=== PATIENT | male | born 1970 | race Caucasian/White ===

== ENCOUNTER 2021-10-11 10:35 | Outpatient (REF) | payer OTHER, SELFPAY ==
[2021-10-11 13:59] LABS: Alanine Aminotransferase 38 U/L (0-40); Albumin Level 4.3 g/dL (3.5-5.0); Alkaline Phosphatase 59 U/L (39-117); Anion Gap 11 (12-20); Aspartate Amino Transferase 24 U/L (5-37); Bilirubin Total 1.2 mg/dL (0.0-1.0); Blood Urea Nitrogen 9 mg/dL (9-16); Calcium 9.3 mg/dL (8.4-10.2); Carbon Dioxide 28 mmol/L (22-29); Chloride 106 mmol/L (96-108); Cholesterol 261 mg/dL; Estimated Glomerular Filt Rate > 60; Glucose Fasting 124 mg/dL (60-99); HDL Cholesterol 32 mg/dL; LDL Cholesterol Calculated 182 mg/dl; Potassium 4.2 mmol/L (3.3-5.1); Sodium 141 mmol/L (135-145); Total Protein 7.2 g/dL (6.5-8.0); Triglycerides 235 mg/dL
[2021-10-11 14:21] LABS: Prostate Specific Antigen Scr 0.55 ng/mL (<0.05-4.0); TSH reflex Free T4 2.06 uIU/mL (0.32-4.0)
[2021-10-16 10:46] LABS: Testosterone, Total 437 ng/dL (250-1100)
== END 2021-10-11 10:36 | disposition home or self-care (01) ==
LOC: HO.WFDLDS 10:35
PROVIDERS: Visit Provider Family Medicine
DX: Z00.00 Encounter for general adult medical examination without abnormal findings (principal); N52.9 Male erectile dysfunction, unspecified; E66.9 Obesity, unspecified; E78.5 Hyperlipidemia, unspecified; R74.01 Elevation of levels of liver transaminase levels; Z68.30 Body mass index [BMI] 30.0-30.9, adult; Z12.5 Encounter for screening for malignant neoplasm of prostate
CPT/HCPCS: 36415; 80053; 80061; 84153; 84402; 84403; 84443

== ENCOUNTER 2022-01-28 10:34 | Outpatient (REF) | payer OTHER, SELFPAY ==
[2022-01-28 14:30] LABS: Cholesterol 235 mg/dL; HDL Cholesterol 32 mg/dL; LDL Cholesterol Calculated 161 mg/dl; Triglycerides 210 mg/dL
[2022-01-28 14:36] LABS: Estimated Average Glucose 114 mg/dL; Hemoglobin A1c % 5.6 %
== END 2022-01-28 10:35 | disposition home or self-care (01) ==
LOC: HO.WFDLDS 10:34
PROVIDERS: Visit Provider Family Medicine
DX: E78.5 Hyperlipidemia, unspecified (principal); R73.01 Impaired fasting glucose
CPT/HCPCS: 36415; 80061; 83036

== ENCOUNTER → 2022-02-14 10:07 | Outpatient (BNVA) | payer OTHER, SELFPAY | PROVIDERS: PCP Family Medicine; Visit Provider Nurse Practitioner Family | DX: R06.83 Snoring (principal); R40.0 Somnolence | CPT/HCPCS: 99202 ==

== ENCOUNTER → 2022-03-04 09:25 | Outpatient (BNVA) | payer OTHER, SELFPAY | PROVIDERS: PCP Family Medicine; Referring Provider Family Medicine; Visit Provider Nurse Practitioner | DX: K58.0 Irritable bowel syndrome with diarrhea (principal) | CPT/HCPCS: 99202; 99212 ==

== ENCOUNTER → 2022-03-21 10:38 | Outpatient (REF) | payer OTHER, SELFPAY ==
[2022-03-21 11:29] LABS: C Reactive Protein 0.18 mg/dL (< or = 0.50)
[2022-03-23 10:41] LABS: Transglutaminase Ab IgG <1.0 U/mL
[2022-03-25 14:47] LABS: Gliadin Deamidated IgA Ab 2.1 U/mL; Gliadin Deamidated IgG Ab <1.0 U/mL; Transglutaminase IgA <1.0 U/mL
== END ==
LOC: HO.SL 10:38
PROVIDERS: Absent Provider Nurse Practitioner; PCP Family Medicine; Visit Provider Nurse Practitioner Family
DX: R06.83 Snoring (principal); R40.0 Somnolence; R19.7 Diarrhea, unspecified
CPT/HCPCS: 36415; 86003; 86140; 86258; 86364; 95806

== ENCOUNTER 2022-05-23 09:11 | Outpatient (REF) | payer OTHER, SELFPAY ==
--- NOTE | ~2022-05-23 | US_ITS ---
EXAMINATION: US ABDOMEN LIMITED CLINICAL INFORMATION: Abdominal pain, rule out gallbladder disease. COMPARISON: None TECHNIQUE: Real-time imaging of the right upper quadrant abdominal viscera. Technically limited study secondary to bowel gas. FINDINGS: PANCREAS: Visualized part of the body appears unremarkable. LIVER: The liver is normal in size. The liver contour is normal. There is diffuse increased liver parenchymal echogenicity, consistent with hepatic steatosis or hepatocellular disease or combination thereof. Focal areas of fatty sparing are noted around the gallbladder bed. There is no intrahepatic biliary duct dilatation seen. GALLBLADDER: Normal. The gallbladder is physiologically distended without evidence of stones, sludge, polyps, wall thickening or pericholecystic fluid. The gallbladder wall thickness measures 0.3 cm. COMMON BILE DUCT: Normal in caliber measuring 0.4 cm in diameter. RIGHT KIDNEY: There is a complex 2.0 cm maximum dimension cyst present associated with possible small solid nodular component. No hydronephrosis or renal calculi. The kidney measures 11.6 cm in maximum dimension. FREE FLUID: None. US/US abdomen limited IMPRESSION: 1. No sonographic evidence of cholelithiasis or biliary obstruction. 2. Complex 2.0 cm maximum dimension cyst associated with possible small solid nodular component, not optimally evaluated. Follow-up CT scan or MRI per renal mass protocol with and without intravenous contrast is recommended for further clarification.
== END 2022-05-23 09:12 | disposition home or self-care (01) ==
LOC: HO.US 09:11
PROVIDERS: PCP Family Medicine; Visit Provider Nurse Practitioner
DX: R19.7 Diarrhea, unspecified (principal)
CPT/HCPCS: 76705

== ENCOUNTER → 2022-06-03 10:06 | Outpatient (BNVA) | payer OTHER, SELFPAY | PROVIDERS: PCP Family Medicine; Referring Provider Family Medicine; Visit Provider Nurse Practitioner | DX: R19.7 Diarrhea, unspecified (principal); R14.0 Abdominal distension (gaseous) | CPT/HCPCS: 99212 ==

== ENCOUNTER 2022-06-27 11:46 | Outpatient (REF) | payer OTHER, SELFPAY ==
[2022-06-27 14:43] LABS: Cholesterol 261 mg/dL; HDL Cholesterol 37 mg/dL; LDL Cholesterol Calculated 178 mg/dl; Triglycerides 231 mg/dL
== END 2022-06-27 11:47 | disposition home or self-care (01) ==
LOC: HO.WFDLDS 11:46
PROVIDERS: Visit Provider Family Medicine
DX: Z00.00 Encounter for general adult medical examination without abnormal findings (principal); E78.5 Hyperlipidemia, unspecified; E78.6 Lipoprotein deficiency; R53.83 Other fatigue
CPT/HCPCS: 36415; 80061

== ENCOUNTER 2022-07-15 08:30 | Outpatient (REF) | payer OTHER, SELFPAY ==
--- NOTE | ~2022-07-15 | CT_ITS ---
EXAMINATION: CT ABDOMEN WITHOUT AND WITH CONTRAST CLINICAL INFORMATION: Other diseases of the kidneys. COMPARISON: None TECHNIQUE: Contiguous axial thin section helical images of the abdomen were performed before and after the administration of oral contrast and 85 mL of Omnipaque 350 intravenous contrast. The data set was reformatted in the coronal and sagittal planes and reviewed on an independent workstation. This CT examination was performed using dose optimization techniques as appropriate, variously including the following: *Automated exposure control *Adjustment of mA and/or kV according to patient size (this includes techniques or standardized protocols for targeted exams where dose is matched to indication/reason for exam; i.e. extremities or head) *Use of iterative reconstruction technique DLP: 685 mGy-cm FINDINGS: LUNG BASES: There are reticular nodular changes in both lower lobes more nodules bilaterally. Findings are greater on the left. Heart size is normal. LIVER, GALLBLADDER, AND BILIARY TREE: The liver is diffusely attenuated but normal size, contour and shape. No focal lesion or intrahepatic ductal dilatation seen. PANCREAS: The pancreas is homogeneous in density and normal size. The periventricular borders are maintained normal. Superior and posterior pancreas or abnormal lymph nodes. SPLEEN: Spleen appears unremarkable. ADRENAL GLANDS AND KIDNEYS: Bilateral adrenal glands are symmetric and normal. Both kidney nephrograms are symmetrical. There is a nonenhancing upper pole 2 cm cyst. There are a few tiny hypodensities seen in the upper pole right kidney as well. No radiopaque calculi hydronephrosis seen. BOWEL LOOPS: There is scattered stool and gas seen throughout the colon without any significant distention. The small bowel loops are normal caliber. Appendix is normal caliber. LYMPH NODES: Numerous upper retroperitoneal lymph nodes are seen largest lymph node measuring 1.4 cm axial image 69/4. A portacaval lymph node also measures 1.4 cm axial image 76/4. VASCULAR: Unremarkable. BONES: No aggressive lytic or sclerotic process seen. CT/CT abdomen wo/w IV con IMPRESSION: Abnormal upper abdominal retroperitoneal lymph nodes of unknown etiology. There is mild hepatic attenuation likely fatty infiltration. No focal lesion seen. Simple cyst midpole right kidney. There are few tiny hypodensities seen in the upper pole. Left kidney is unremarkable. Fleischner guidelines were followed.
[2022-07-15] MEDS: iohexoL 350 MG/ML 100 ML INFUS..BTL 85 ML IV (09:15)
[2022-07-15 10:34] LABS: Creatinine POC 0.8 mg/dL (0.5-1.4); GFR POC > 60
== END 2022-07-15 08:31 | disposition home or self-care (01) ==
LOC: HO.CT 08:30
PROVIDERS: PCP Family Medicine; Visit Provider Family Medicine
DX: N28.89 Other specified disorders of kidney and ureter (principal)
CPT/HCPCS: 74170; 82565; Q9967

== ENCOUNTER → 2022-08-10 14:46 | Outpatient (BNVA) | payer OTHER, SELFPAY | PROVIDERS: PCP Family Medicine; Visit Provider Surgery | DX: R59.0 Localized enlarged lymph nodes (principal) | CPT/HCPCS: 99202 ==

== ENCOUNTER 2023-12-27 13:58 | Outpatient (AMB) | payer SELFPAY ==
--- NOTE | 2023-12-27 14:01 | A.OFFPC_ITS ---
Vital Signs 12/27/23 14:02 Height 5 ft 9 in Weight 211 lb 2 oz BMI 31.2 BP 116/60 Blood Pressure Location Lt brachial Position Sitting Pulse 80 Pulse Source Pulse Oximeter Pulse Oximetry (%) 96 Oxygen Delivery Method Room Air Intake Visit Reasons: CPE Intake Note: Patient is here for his physical today. Allergies No Known Allergies Allergy (Verified 12/27/23 14:04) Tobacco use date assessed: 12/27/23 Dental Screening Dental Screen Date: 12/27/23 Did you have a dental visit in the last 12 months?: Yes Did you have a dental problem in the last 6 months where you did not have access to dental care?: No Was dental information given to patient?: Patient has dentist HPI CPE HPI Details 53 y/o male presents for an extended exa m with f/u labs and health maintenance. No recent labs to review. Pt notes he walks for exercise daily. Pt notes he snores loudly. He states he did do a sleep study about 2 years ago. Home sleep study was negative for sleep apnea. Pt notes he has not had a colonoscopy. HPI Comments History of Present Illness Details Documentation assistance for Brayan Vazquez MD, was provided by Ramesh Salamanca, Non Destructive Testing Technician on 12/27/2023 2:22 PM EST. I, Dr. Vazquez, have read, observed, and verified documentation. [facility] Surgical History History of back surgery Family History Other Mental health disorder Social History Housing: Apartment Patient Tobacco Use Status: Never used Tobacco e-Cigarette/Vaping Use: Never Used Second Hand Smoke Exposure: No Current occupational status: employed Current occupational exposures/hazards: No Cognitive needs: No Hearing needs: No Vision needs: No Questionnaire PHQ-9 Over the last 2 weeks, how often have you been bothered by any of the following problems? 1. Little interest or pleasure in doing things: not at all 2. Feeling down, depressed, or hopeless: not at all 3. Trouble falling or staying asleep, or sleeping too much: not at all 4. Feeling tired or having little energy: not at all 5. Poor appetite or overeating: not at all 6. Feeling bad about yourself - or that you are a failure or have let yourself or your family down: not at all 7. Trouble concentrating on things, such as reading the newspaper or watching television: not at all 8. Moving or speaking so slowly that other people could have noticed. Or the opposite - being so fidgety or restless that you have been moving around a lot more than usual: not at all 9. Thoughts that you would be better off or of hurting yourself in some way: not at all Total score: 0 Depression Screening Interpretation: Negative Depression Screening Done: Yes 88734 - PHQ-9 Billing: Yes Source: Developed by Drs. Anders Lovelace, Matilde Fink, Sterling Freeman and colleagues, with an educational ai from [employer]. Thrive Questionnaire Date Thrive assessed: 12/27/23 I am a: Patient What is your living situation today?: I have a steady place to live Within the past 12 months, did the food you bought not last and you didn't have the money to get more?: Never true Within the past 12 months, did you worry whether your food would run out before you got money to buy more?: Never true Do you have trouble paying for medicines?: No Do you have trouble getting transportation to medical appointments?: No Do you have trouble paying your heating and electricity bill?: No Do you have trouble taking care of your child, family member or friend?: No Do you have trouble with day-to-day activities such as bathing, preparing meals, shopping, managing finances, etc.?: No Are you currently unemployed and looking for a job?: No Are you interested in more education?: No THRIVE Score: 0 AUDIT C Alcohol Use Questionnaire (AUDIT-C) 1. How often do you have a drink containing alcohol?: 2-3 times a week (once a week) 2. How many drinks containing alcohol do you have on a typical day when you are drinking?: 5 or 6 3. How often do you have six or more drinks on one occasion?: Never Total Score: 5 ROJAS-7 AMB Questionnaire ROJAS-7 Date ROJAS - 7 assessed: 03/27/24 Feeling nervous, anxious, or on edge: 0 = Not at all Not being able to stop or control worryin = Not at all Worrying too much about different things: 0 = Not at all Trouble relaxin = Not at all Being so restless that it is hard to sit still: 0 = Not at all Becoming easily annoyed or irritable: 0 = Not at all Feeling afraid as if something awful might happen: 0 = Not at all Total ROJAS-7 score (0-4 normal; 5-9 mild; 10-14 moderate; 15-21 severe): 0 Source: Developed by Drs. Anders Lovelace, Matilde Fink, Sterling Freeman and colleagues, with an educational ai from [employer]. ROJAS-7 Assessment Billing ROJAS-7 Assessment Tool: ROJAS-7 Assessment 26242 Review of Systems Const Denies chills, Denies fatigue, Denies fever(s), Denies headache(s) and Denies weakness Eyes Denies change in vision ENT Denies dizziness, Denies headache(s), Denies hearing loss, Denies nasal congestion, Denies sinus pain, Denies sinus pressure and Denies sore throat Card Denies chest pain, Denies lightheadedness, Denies dyspnea and Denies other (palpitations) Resp Denies cough, Denies dyspnea and Denies wheezing GI Denies abdominal pain, Denies melena, Denies hematochezia, Denies change in bowel habits, Denies dyspepsia and Denies nausea Denies hematuria and Denies dysuria Musc Denies abnormal gait, Denies myalgias, Denies arthralgias, Denies numbness and Denies tingling Skin/Breast Denies rash, Denies unusual bruising and Denies wounds Neuro Denies abnormal gait, Denies dizziness, Denies headache(s), Denies memory loss, Denies numbness, Denies Sensory deficit (Neuro), Denies tingling and Denies weakness Psych Denies anxiety, Denies depression and Denies memory loss Endo Denies cold intolerance, Denies fatigue, Denies heat intolerance, Denies polydipsia and Denies polyuria Clay/Lymph Denies easy bleeding and Denies easy bruising Aller/Immun Denies wheezing Physical exam (Primary Care) Vital Signs: Last Vital Signs Pulse 80 12/27/23 14:02 BP 116/60 12/27/23 14:02 Pulse Ox 96 12/27/23 14:02 Oxygen Delivery Method Room Air 12/27/23 14:02 BMI result Body Mass Index 31.2 Tobacco/Smoking Status: Tobacco use Status Tobacco use date assessed 12/27/23 12/27/23 14:04 Patient Tobacco Use Status Never used Tobacco 12/27/23 14:02 e-Cigarette/Vaping Use Never Used 12/27/23 14:02 PHQ-9: PHQ-9 Score PHQ-9: Total score 0 12/27/23 14:10 Depression Screening Interpretation: Negative Thrive Assessment: Date of Thrive Assessment Date Thrive assessed 12/27/23 12/27/23 14:10 Const General: no acute distress, well developed, alert and awake Nutritional Appearance: well nourished Orientation/consciousness: patient oriented x3 HENMT Head: Yes normocephalic and Yes atraumatic Ears: hearing grossly normal bilaterally and TM's normal bilaterally General nose exam: Normal external nose present and Normal nares present Mouth: Normal oral and palatal mucosa present and moist mucous membranes Teeth and gingiva: dentition normal Throat: Yes posterior oropharynx normal Eyes General: appearance normal, both eyes and all related structures Pupils: Equal, round and reactive pupils present and Pupil accommodation reflex normal EOM: EOMs intact bilaterally Neck Neck: Yes normal visual inspection, Yes no lymphadenopathy and Yes trachea midline Thyroid: Thyroid normal Carotids: no bruits Lymphatic: no lymphadenopathy noted Chest Chest palpation & inspection: normal inspection of the chest Resp Effort & Inspection: normal respiratory effort Auscultation: clear to auscultation bilaterally Cardio Rate: regular rate Rhythm: regular rhythm Heart sounds: S1 normal heart sound present, S2 normal heart sound present, no gallops, no murmurs and no rubs Bruits: no abdominal aortic bruits and no carotid bruits GI Palpation (GI): No Abdominal aortic bruit present, Soft to palpation, nontender, No hepatosplenomegaly present and No Rebound tenderness present Auscultation: normal bowel sounds General: Yes no CVA tenderness Back/Spine/Pelvis Back: no CVA tenderness Cervical Spine: cervical ROM normal and No Cervical spine tenderness Thoracic/Lumbar Spine: thoraco-lumbar ROM normal, No pain with thoraco-lumbar ROM, No thoracic spinal tenderness and No lumbar spinal tenderness Skin Lesions: no lesions Rashes: no rashes Trauma: no lacerations or abrasions Wounds: no wounds Nails: normal Neuro General: patient oriented x3 Cranial nerves: Yes Equal, round and reactive pupils present Cognition (Neuro): normal cognition Gait exam (Neuro): Normal gait present Motor exam (neuro): 5/5 motor strength present throughout Sensory Exam: No Sensory deficit (Neuro) Deep tendon reflexes (DTR's): Right patellar reflex intensity grade: 2+ and Left patellar reflex intensity grade: 2+ Extrem General: Yes normal to inspection and No edema Psych Appearance: grossly normal Affect: normal affect Attitude: cooperative Thought process: Normal thought process present Assessment and Plan Assessment & Plan (1) Retroperitoneal lymphadenopathy: Code(s): R59.0 - Localized enlarged lymph nodes Plan: Patient?says?he?followed?up?with?surgeon?who?reassured?him?that?there?was?no?nee d?for?intervention. He?has?no?abdominal?pain?or?testicular?pain. Advised?him?that?if?he?has?any?concerns?we?can?follow- up?with?CT?scan.??Patient?declines?for?now. (2) Lumbar radiculitis: Code(s): M54.16 - Radiculopathy, lumbar region Plan: History?of?back?surgery Intermittent?symptoms Referred?to?physiatry If?not?improving?would?get?MRI?and?consider?referral?back?to?surgeon (3) Snoring: Code(s): R06.83 - Snoring Plan: Loud?snoring?and?un?restful?sleep/fatigue. Referred?to?ENT He?had?had?a?sleep?study?previously?which?was?negative?but?still?suspicious?for? obstructive?sleep?apnea (4) Umbilical hernia: Code(s): K42.9 - Umbilical hernia without obstruction or gangrene Plan: Referred?to?surgery (5) Screening for prostate cancer: Code(s): Z12.5 - Encounter for screening for malignant neoplasm of prostate Plan: Check?PSA (6) Screening for colon cancer: Code(s): Z12.11 - Encounter for screening for malignant neoplasm of colon Plan: Will?refer?to?Gastroenterology (7) Adult general medical examination: Code(s): Z00.00 - Encounter for general adult medical examination without abnormal findings Orders: Orders Complete Blood Count Auto Diff Today Z00.00 - Encounter for general adult medical examination without abnormal findings Microalbumin, Random (w Creat) Today I10 - Essential (primary) hypertension TSH reflex Free T4 Today Z00.00 - Encounter for general adult medical examination without abnormal findings Testosterone, Free/Total Today N52.9 - Male erectile dysfunction, unspecified Comprehensive [place]. Panel Fast Today Z00.00 - Encounter for general adult medical examination without abnormal findings Lipid Panel Today Z00.00 - Encounter for general adult medical examination without abnormal findings Prostate Specific Antigen Scr Today Z12.5 - Encounter for screening for malignant neoplasm of prostate UA and rflx microscopic Today Z00.00 - Encounter for general adult medical examination without abnormal findings Referrals Ear/Nose/Throat Referral R06.83 - Snoring, R40.0 - Somnolence Gastroenterology Referral Z12.11 - Encounter for screening for malignant neoplasm of colon General Surgery Referral K42.9 - Umbilical hernia without obstruction or gangrene Physiatry Referral M54.16 - Radiculopathy, lumbar region Coding Level of Care Code Est Pt Level 4 (07474) Diagnoses Retroperitoneal lymphadenopathy R59.0 Lumbar radiculitis M54.16 Snoring R06.83 Umbilical hernia K42.9 Screening for prostate cancer Z12.5 Screening for colon cancer Z12.11 Adult general medical examination Z00.00 Additional Codes ROJAS-7 Assessment Billing - ROJAS-7 Assessment Tool: ROJAS-7 Assessment 25835 ([id number])
[2023-12-27 14:02] VITALS: BP 116/60; PULSE 80; O2SAT 96; BMI 31.2
== END 2023-12-27 15:10 | disposition home or self-care (01) ==
PROVIDERS: PCP Family Medicine; Visit Provider Family Medicine
DX: Z00.00 Encounter for general adult medical examination without abnormal findings (principal); R59.0 Localized enlarged lymph nodes; M54.16 Radiculopathy, lumbar region; R06.83 Snoring; K42.9 Umbilical hernia without obstruction or gangrene; Z12.5 Encounter for screening for malignant neoplasm of prostate; Z12.11 Encounter for screening for malignant neoplasm of colon
CPT/HCPCS: 99396

== ENCOUNTER 2024-03-11 09:28 | Outpatient (REF) | payer OTHER, SELFPAY ==
[2024-03-11 09:46] LABS: MANUAL DIFF FLAG NO
[2024-03-11 10:13] LABS: Basophils Percent Auto 0.5 % (0-2); Eosinophils Absolute Auto 0.1 X10*3/uL (0.0-0.4); Eosinophils Percent Auto 2.3 % (0-4); Hematocrit 49.9 % (42.0-52.0); Hemoglobin 17.1 g/dl (14.0-18.0); Imm Gran Abs Auto 0.03 X10*3/uL (0.00-0.03); Imm Gran Pct Auto 0.7 % (0.0-0.4); Lymphocytes Absolute Auto 1.4 X10*3/uL (1.2-4.9); Lymphocytes Percent Auto 33.4 % (20-40); Mean Corpuscular HGB Conc 34.3 g/dl (31.0-36.0); Mean Corpuscular Hemoglobin 29.2 pg (27.0-33.0); Mean Corpuscular Volume 85.3 fL (80.0-98.0); Mean Platelet Volume 10.6 fL (9.4-12.4); Monocytes Absolute Auto 0.4 X10*3/uL (0.1-1.2); Monocytes Percent Auto 8.4 % (2-11); Neutrophils Absolute Auto 2.3 x10*3/uL (2.0-8.3); Neutrophils Percent Auto 54.7 % (45-73); Platelet Count 225 X10*3/uL (160-400); Red Blood Count 5.85 X10*6/uL (4.60-5.80); Red Cell Distribution Width 12.9 % (11.0-16.0); White Blood Count 4.3 X10*3/uL (4.8-10.8)
[2024-03-11 11:04] LABS: Prostate Specific Antigen Scr 0.58 ng/mL (<0.05-4.0)
[2024-03-11 11:09] LABS: Alanine Aminotransferase 43 U/L (0-40); Albumin Level 4.6 g/dL (3.5-5.0); Alkaline Phosphatase 58 U/L (39-117); Anion Gap 16 (12-20); Aspartate Amino Transferase 26 U/L (5-37); Bilirubin Total 1.1 mg/dL (0.0-1.0); Blood Urea Nitrogen 11 mg/dL (9-16); Calcium 10.1 mg/dL (8.4-10.2); Carbon Dioxide 27 mmol/L (22-29); Chloride 104 mmol/L (96-108); Cholesterol 263 mg/dL (<200); Estimated Glomerular Filt Rate > 60; Glucose Fasting 133 mg/dL (60-99); HDL Cholesterol 36 mg/dL (>40); LDL Cholesterol Calculated 189 mg/dL (<100); Potassium 4.7 mmol/L (3.3-5.1); Sodium 142 mmol/L (135-145); TSH reflex Free T4 2.02 uIU/mL (0.32-4.0); Total Protein 7.6 g/dL (6.5-8.0); Triglycerides 191 mg/dL (<150)
[2024-03-11 11:24] LABS: Appearance Urine Clear; Color Urine Yellow; Glucose Urine UA Negative (Negative); Leukocyte Esterase Urine Negative (Negative); Nitrite Urine Negative (Negative); PH 5.5 (5.0-9.0); Specific Gravity - Urine 1.025 (1.005-1.025); Urine Blood Negative (Negative); Urine Ketones Negative (Negative); Urine Protein Negative (Neg-Trace)
[2024-03-11 12:13] LABS: Creatinine Urine 185.13 mg/dL; Microalbum/Creatinine Ratio Ur 5.9 ug/mg cr (<30)
[2024-03-16 19:19] LABS: Testosterone, Free 48.8 pg/mL (35.0-155.0); Testosterone, Total 530 ng/dL (250-1100)
== END 2024-03-11 09:29 | disposition home or self-care (01) ==
LOC: HO.LAB 09:28
PROVIDERS: PCP Family Medicine; Visit Provider Family Medicine
DX: Z00.00 Encounter for general adult medical examination without abnormal findings (principal); N52.9 Male erectile dysfunction, unspecified; I10 Essential (primary) hypertension; K42.9 Umbilical hernia without obstruction or gangrene; Z12.5 Encounter for screening for malignant neoplasm of prostate
CPT/HCPCS: 36415; 80053; 80061; 81003; 82043; 82570; 84153; 84402; 84403; 84443; 85025; 99212

== ENCOUNTER 2024-03-11 12:56 | Outpatient (AMB) | payer OTHER, SELFPAY ==
[2024-03-11 13:07] VITALS: BP 137/89; PULSE 87; BMI 32.0
--- NOTE | 2024-03-11 13:07 | A.OFFVIS_ITS ---
Vital Signs 03/11/24 13:07 Height 5 ft 9 in Weight 217 lb BMI 32.0 BP 137/89 Blood Pressure Location Rt brachial Position Sitting Pulse 87 Intake Visit Reasons: Umbilical hernia Intake Note: This patient presents for an assessment for an Umbilical hernia. Pt c/o; reports bulge, reports pain, reports no changes in bowel habitis. Abd Ct 07/15/2022 abd US 05/23/2022 Accompanied by: Other Relationship Allergies No Known Allergies Allergy (Verified 03/11/24 13:09) Medication List - Last Reconciled 03/11/24 by Rah Hull MD No Known Home Meds HPI HPI Umbilical hernia: Details: 54-year-old male referred for an umbilical hernia. He has had this for about 2 years. He this reducible mass on the umbilicus. This has been increasing in size however and causing some discomfort now. He therefore wants this repaired. [facility] Surgical History History of back surgery Family History Other Mental health disorder Social History Housing: Apartment Patient Tobacco Use Status: Never used Tobacco e-Cigarette/Vaping Use: Never Used Second Hand Smoke Exposure: No Current occupational status: employed Current occupational exposures/hazards: No Cognitive needs: No Hearing needs: No Vision needs: No Review of Systems Const Denies chills and Denies fever(s) Card Denies chest pain, Denies dyspnea and Denies dyspnea on exertion Resp Denies cough, Denies dyspnea and Denies dyspnea on exertion GI Denies hematochezia and Denies change in bowel habits Denies hematuria and Denies difficulty urinating Musc Denies back pain and Denies limited range of motion Neuro Denies focal weakness and Denies convulsions Psych Denies depression and Denies mood swings Physical Exam Vital Signs: Last Vital Signs Pulse 87 03/11/24 13:07 BP 137/89 03/11/24 13:07 BMI result Body Mass Index 32.0 Const Other: Appears overweight General: comfortable and no acute distress Orientation/consciousness: patient oriented x3 Neck Neck: Yes no lymphadenopathy Resp Auscultation: clear to auscultation bilaterally Cardio Rhythm: regular rhythm GI Other: Umbilical hernia, about 2 cm in diameter, reducible Palpation (GI): Soft to palpation, nontender and no guarding Neuro General: patient oriented x3 Assessment & Plan Assessment & Plan (1) Umbilical hernia: Code(s): K42.9 - Umbilical hernia without obstruction or gangrene Category: Medical Plan: He has a reducible umbilical hernia as described above. He wants to proceed with repair. I explained the technique of repair with possible mesh. I reviewed the risks including but not limited to bleeding, infections, bowel injury, recurrence, postop pain, as well as the benefits and alternatives. He understands and wants to proceed His was with him during visit He had a history of retroperitoneal adenopathy in the past he would it may be good to repeat his CT scan down the line. Coding Level of Care Code Est Pt Level 3 (98359) Diagnoses Umbilical hernia K42.9
== END 2024-03-11 13:23 | disposition home or self-care (01) ==
PROVIDERS: PCP Family Medicine; Visit Provider Surgery
DX: K42.9 Umbilical hernia without obstruction or gangrene (principal)
CPT/HCPCS: 99214

== ENCOUNTER → 2024-03-22 08:24 | Outpatient (AMB) | payer OTHER, SELFPAY ==
--- NOTE | 2024-03-22 08:22 | MHC.PC.OV ---
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 Labs were drawn 03/11/24. Reviewed labs with pt. Elevated fasting glucose of 133. Elevated ALT of 43. Triglycerides 191. TC 263. LDL 189. HDL low at 36. Pt had been concerned about fatigue/changes in libido. Testosterone levels are within normal range. He notes he does cough, snore and turn in the middle of the night. He notes he did have a sleep study but has never heard about the results. [facility] Surgical History History of back surgery Family History Other Mental health disorder Social History Housing: Apartment Patient Tobacco Use Status: Never used Tobacco e-Cigarette/Vaping Use: Never Used Second Hand Smoke Exposure: No Current occupational status: employed Current occupational exposures/hazards: No Cognitive needs: No Hearing needs: No Vision needs: No Questionnaire Thrive Questionnaire Date Thrive assessed: 12/27/23 ROJAS-7 AMB Questionnaire ROJAS-7 Date ROJAS - 7 assessed: 12/27/23 Source: Developed by Drs. Anders Lovelace, Matilde Fink, Sterling Freeman and colleagues, with an educational ai from [employer]. Review of Systems Const Denies chills, Denies fatigue, Denies fever(s), Denies headache(s) and Denies weakness ENT Denies dizziness and Denies headache(s) Card Denies dyspnea Resp Denies cough, Denies dyspnea, Denies wheezing and Denies other (shortness of breath) Musc Denies numbness and Denies tingling Neuro Denies dizziness, Denies headache(s), Denies numbness, Denies tingling and Denies weakness Psych Denies anxiety and Denies depression Endo Denies fatigue Aller/Immun Denies wheezing Physical exam (Primary Care) Tobacco/Smoking Status: Tobacco use Status Tobacco use date assessed 12/27/23 03/22/24 08:22 Patient Tobacco Use Status Never used Tobacco 03/22/24 08:22 e-Cigarette/Vaping Use Never Used 03/22/24 08:22 Thrive Assessment: Date of Thrive Assessment Date Thrive assessed 12/27/23 03/22/24 08:22 Telehealth Telehealth Telehealth Platform: Telephone Location of provider rendering services: practice address Location of patient: address on file Patient Identification confirmed using: Name, : Yes Telehealth method: voice only Patient verbally consented to treatment: Yes Patient verbally consented to billing insurance company: Yes Patient informed of any privacy concerns related to visit: Yes Minutes spent on Phone/Video with Pt.: 20 Assessment and Plan Assessment & Plan (1) Hyperlipidemia: Code(s): E78.5 - Hyperlipidemia, unspecified Plan: LDL?cholesterol?is?too?high Start?atorvastatin Will?recheck?lipids?in?3?months (2) Elevated fasting blood sugar: Code(s): R73.01 - Impaired fasting glucose Plan: Will?check?A1c?at?next?lab?draw (3) Elevated transaminase level: Code(s): R74.01 - Elevation of levels of liver transaminase levels Plan: Patient?has?had?elevated?liver?enzymes?in?the?past Mildly?elevated?ALT Prior?abdominal?ultrasound?and?prior?abdominal?CT?show?fatty?liver?disorder?without?other?lesions Encouraged?weight?loss (4) Low HDL (under 40): Code(s): E78.6 - Lipoprotein deficiency Plan: Encouraged?exercise - patient?says?he?is?already?exercising?quite?a?bit Encouraged?good?consistency?of?exercise?and?he?can?adjust?intensity?subsequently. (5) Fatigue: Code(s): R53.83 - Other fatigue Plan: Ongoing?fatigue?throughout?his?day?and?awakens?without?feeling?refreshed. She?snores?loudly Had?a?sleep?study?in?2021?which?was?negative. Recommending?he?follow-up?with?sleep?medicine?again?and?repeat?sleep?study - may?benefit?from?an in-lab?study (6) Loud snoring: Code(s): R06.83 - Snoring Plan: As?above (7) Erectile dysfunction: Code(s): N52.9 - Male erectile dysfunction, unspecified Plan: ED?and?decreased?libido Testosterone?levels?are?fine Referred?to?urology?at?patient?request Trialing?sildenafil (8) Decreased libido: Code(s): R68.82 - Decreased libido Plan: As?above Orders: Orders Lipid Panel Today E78.5 - Hyperlipidemia, unspecified, Z00.00 - Encounter for general adult medical examination without abnormal findings Hemoglobin A1c Today R73.01 - Impaired fasting glucose Referrals Sleep Medicine Referral R06.83 - Snoring, R40.0 - Somnolence, R53.83 - Other fatigue Urology Referral N52.9 - Male erectile dysfunction, unspecified Medications: New sildenafil administer 30 minutes to 4 hours before activity 50 mg PO DAILY 30 days PRN 6 tabs 3RF sexual activity atorvastatin 40 mg PO BEDTIME 90 days 90 tabs 2RF Coding Level of Care Code Tele Est Pt Level 3 (95772) Diagnoses Hyperlipidemia E78.5 Elevated fasting blood sugar R73.01 Elevated transaminase level R74.01 Low HDL (under 40) E78.6 Fatigue R53.83 Loud snoring R06.83 Erectile dysfunction N52.9 Decreased libido R68.82
== END ==
PROVIDERS: PCP Family Medicine; Visit Provider Family Medicine
DX: E78.5 Hyperlipidemia, unspecified (principal); R73.01 Impaired fasting glucose; R74.01 Elevation of levels of liver transaminase levels; E78.6 Lipoprotein deficiency; R53.83 Other fatigue; R06.83 Snoring; N52.9 Male erectile dysfunction, unspecified; R68.82 Decreased libido
CPT/HCPCS: 99213

== ENCOUNTER 2024-04-16 07:28 | Day surgery (SDC) | payer OTHER, SELFPAY ==
[2024-04-12 12:31] VITALS: BMI 32.0
--- NOTE | 2024-04-15 09:25 | HO.ANESPROP2 ---
Documented by User: Erin Lancaster NP 04/15/24 09:26 HPI - Anesthesia Eval Consult details Narrative: 54yo M for Hernia Umbilical Reducible with mesh PMFSH Active Problems Active Problems: All Active Problems Decreased libido (Acute) Lumbar radiculitis (Acute) Snoring (Acute) Umbilical hernia (Acute) Adult general medical examination (Acute) Retroperitoneal lymphadenopathy (Acute) Fatigue (Acute) Neoplasm of uncertain behavior of skin (Acute) Back pain (Acute) Renal mass (Acute) Diarrhea (Acute) Daytime sleepiness (Acute) Loud snoring (Acute) Screening for colon cancer (Acute) Low HDL (under 40) (Acute) Erectile dysfunction (Acute) Left leg weakness (Acute) Screening for prostate cancer (Acute) Class 1 obesity with body mass index (BMI) of 30.0 to 30.9 in adult (Acute) IBS (irritable bowel syndrome) (Acute) Epicondylitis (Acute) Elevated transaminase level (Acute) Elevated fasting blood sugar (Acute) Hyperlipidemia (Acute) Past Medical History Medical History Elevated cholesterol Family History Family History Other Mental health disorder Surgical History Surgical History History of back surgery Social History Social History Housing: Apartment Patient Tobacco Use Status: Never used Tobacco e-Cigarette/Vaping Use: Never Used Second Hand Smoke Exposure: No Use of substances other than those prescribed or required for medical reasons: No Are you DNR?: No Advance Directives: No Advance Directives Information Provided: Yes Current occupational status: employed Current occupational exposures/hazards: No Cognitive needs: No Hearing needs: No Vision needs: No Meds Allergies Allergy/AdvReac Type Severity Reaction Status Date / Time No Known Allergies Allergy Verified 03/22/24 08:22 Exam Height,Weight and Vital Signs: Height 5 ft 9 in Weight 98.43 kg Pertinent Lab Results Pertinent Lab Results: Laboratory Tests 03/11/24 09:45 WBC 4.3 L Hgb 17.1 Hct 49.9 Plt Count 225 Sodium 142 Potassium 4.7 Chloride 104 Carbon Dioxide 27 BUN 11 Creatinine 1.00 Assessment and Plan Assessment Anesthesia Assessment: Chart Reviewed Documented by User: Lillie Dawkins MD 04/16/24 10:41 PMFSH Past Medical History Medical History Elevated cholesterol Family History Family History Other Mental health disorder Family history of problems with anesthesia: No Surgical History Surgical History History of back surgery History of Problems with Anesthesia: No Social History Social History Housing: Apartment Patient Tobacco Use Status: Never used Tobacco e-Cigarette/Vaping Use: Never Used Second Hand Smoke Exposure: No Use of substances other than those prescribed or required for medical reasons: No Are you DNR?: No Advance Directives: No Advance Directives Information Provided: Yes Current occupational status: employed Current occupational exposures/hazards: No Cognitive needs: No Hearing needs: No Vision needs: No Meds Allergies Allergy/AdvReac Type Severity Reaction Status Date / Time No Known Allergies Allergy Verified 03/22/24 08:22 Exam Airway Mallampati Class: II TM Dist: >3cm Neck ROM: Full Heart: rrr Lungs: cta Assessment and Plan Assessment Anesthesia Assessment: Anesthesia Plan Discussed Final Anesthetic Review Family History of Problems with Anesthesia: No History of Problems with Anesthesia: No NPO: Yes ASA Class: II Final Preanesthetic Review: No Changes in Pt Med Stat, Meds/Allgs Chart Reviewed, Consent Obtained/Reviewed and Anes Risks/Benef Reviewed Patient Risk: Low Procedure Risk: Low Anesthetic Plan Anesthetic Plan: GA and MAC: Disposition: Standard PACU
[2024-04-16 07:48] VITALS: BMI 31.2
[2024-04-16 07:54] VITALS: BP 135/94; PULSE 87; RESP 16; TEMP 36; O2SAT 95
[2024-04-16] MEDS: Lactated Ringers 1,000 ML 100 ML IVCONT (08:05)
--- NOTE | 2024-04-16 10:31 | MHC.SHP ---
Pre-Procedural Eval Section A - 24 Hr Update-Section A only Date of Service: 04/16/24 Section B - Complete if H&P > 30 days Chief Complaint: Umbilical hernia without obstruction or gangrene Details of Present Illness: Reducible umbilical hernia with symptoms Relevant Family History (Specify if Yes): No Relevant Social History: None Present Medications: see Short Stay Collaborative assessment Medical History: Significant History (Obesity, rectal dysfunction, hyperlipidemia, fatigue) History of Previous Operations: No relevant previous surgery Allergies: Allergies Allergy/AdvReac Type Severity Reaction Status Date / Time No Known Allergies Allergy Verified 03/22/24 08:22 Review of Systems Sugical H&P ROS: Negative: Constitution, Cardiovascular, Respiratory, Neurological, Psychiatric, Hem-Onc, Allergic/Immunologic, Gastrointestinal, Genitourinary, Musculoskeletal, Integumentary, Endocrine and Eyes/Ears/Nose/Throat Exam Surgical H&P Exam: Normal: HEENT, Normal: Heart, Normal: Lungs, Normal: Extremities, Normal: Skin and Normal: Neurological and Significant Findings: Abdomen (Umbilical hernia reducible about 2 cm) Plan Diagnosis/Plan: Unchanged I have reviewed the history and physical and performed a pertinent physical examination on my patient. No changes have occurred unless specified. Time Spent With Patient Time: Total time managing care of this patient today ____ minutes.
--- NOTE | 2024-04-16 11:44 | P.OP_ITS ---
Operative Note Operative Note Date of Service: 04/16/24 Narrative: Preop diagnosis: Umbilical hernia, reducible Postop diagnosis: Umbilical hernia, reducible, with diameter about 2 cm Procedure: Repair of umbilical hernia with Ventralex mesh Surgeon: Rah Hull MD The patient is a 54-year-old male with a reducible umbilical hernia. He understood the technique of the planned procedure as well as the risks, benefits, and alternatives. He was brought to the operating room. He was placed supine under general anesthesia via endotracheal tube. The abdomen was prepped and draped in the usual sterile fashion. A surgical time-out was done. The patient received cefazolin 2 g IV preoperatively. I infiltrated the planned line of incision with lidocaine 1%. I made a transverse curvilinear superior umbilical incision using blade 15. This was carried down through the full-thickness of the skin subcutaneous fat. I then proceeded to gently dissect the umbilicus at to develop a flap. I was able to visualize the umbilical hernia with its contents. This all consisted of fatty tissue. I sharply dissected the hernia contents off of the rest of the umbilicus and the fascial edge. I was then able to fully reduce this hernia. I cleared the underside of the fascial margins to create space for the mesh. There were no adherent bowel loops The fascial edge measured about 2 cm in diameter . I then proceeded to position the small-sized Ventralex mesh underneath the fascia to obliterate the hernia defect. The Prolene straps of the mesh were secured to the fascial edges with Prolene 2 sutures. The Prolene straps were then trimmed flush. I closed the fascial defect with a [id number] Maxon 1 stitch. The umbilicus was tacked down to the fascia with a Polysorb 3-0 stitch to re- create the dimple. The subdermal layer was reapposed with Polysorb 3-0 interrupted sutures. Skin closure was achieved with Polysorb 4-0 subcuticular running stitch. The area was infiltrated with Marcaine 0.5% for postop analgesia. Steri-Strips and dressings were applied. The procedure was then completed The patient tolerated the procedure well. There were no immediate complications. Initial and final counts of sponges and instruments were correct. Estimated blood loss was less than 5 cc. The patient was extubated without difficulty and transferred to the recovery room with stable vital signs.
[2024-04-16 12:10] VITALS: BP 159/99; PULSE 83; RESP 18; TEMP 36.2; O2SAT 98
[2024-04-16 12:15] VITALS: BP 141/97; PULSE 84; RESP 18; O2SAT 96
[2024-04-16 12:20] VITALS: BP 127/100; PULSE 80; RESP 18; O2SAT 96
[2024-04-16 12:25] VITALS: BP 148/103; PULSE 80; RESP 18; O2SAT 96
[2024-04-16 12:40] VITALS: BP 148/98; PULSE 71; RESP 18; TEMP 36.1; O2SAT 94
== END 2024-04-16 13:25 | disposition home or self-care (01) ==
PROVIDERS: PCP Family Medicine; Visit Provider Surgery
PROC: (CPT 49591; principal; 2024-04-16 10:00)
DX: K42.9 Umbilical hernia without obstruction or gangrene (principal); Z98.890 Other specified postprocedural states
CPT/HCPCS: 49591; C1781; J0131; J0330; J0690; J1100; J2250; J2405; J2704; J2795; J3010

== ENCOUNTER → 2024-04-16 07:28 | Outpatient (BNV) | payer OTHER, SELFPAY | PROVIDERS: PCP Family Medicine; Visit Provider Surgery | DX: K42.9 Umbilical hernia without obstruction or gangrene (principal) | CPT/HCPCS: 49591 ==

== ENCOUNTER 2024-04-29 10:57 | Outpatient (AMB) | payer OTHER, SELFPAY ==
--- NOTE | 2024-04-29 10:59 | A.OFFVIS_ITS ---
Vital Signs 04/29/24 11:05 Weight 210 lb Intake Visit Reasons: S/P umbilical hernia w/mesh Intake Note: This patient presents for a post-op assessment status post umbilical hernia repair with Ventralex mesh. Pt c/o; reports no complaints. 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 He tolerated the procedure well. He currently denies significant complaints. [facility] Medical History Elevated cholesterol Surgical History History of umbilical hernia repair (~04/16/24) History of back surgery Family History Other Mental health disorder Social History Housing: Apartment Patient Tobacco Use Status: Never used Tobacco e-Cigarette/Vaping Use: Never Used Second Hand Smoke Exposure: No Current occupational status: employed Current occupational exposures/hazards: No Cognitive needs: No Hearing needs: No Vision needs: No Review of Systems Const Denies chills and Denies fever(s) Card Denies chest pain, Denies dyspnea and Denies dyspnea on exertion Resp Denies cough, Denies dyspnea and Denies dyspnea on exertion GI Denies hematochezia and Denies change in bowel habits Denies hematuria and Denies difficulty urinating Musc Denies back pain and Denies limited range of motion Neuro Denies focal weakness and Denies convulsions Psych Denies depression and Denies mood swings Physical Exam Const General: comfortable and no acute distress GI Other: Incision clean and dry, repair site well healed and intact Palpation (GI): Soft to palpation, not firm and nontender Assessment & Plan Assessment & Plan (1) Umbilical hernia: Code(s): K42.9 - Umbilical hernia without obstruction or gangrene Category: Medical Plan: Status post umbilical hernia repair with mesh. He is doing very well. His incision is well healed. I advised him to above lifting of anything more than 20 lb for at least 2 more weeks. He can follow up on a p.r.n. basis. I have also ordered for a follow-up CT scan in view of the retroperitoneal lymphadenopathy seen last year. Orders: Orders Blood Urea Nitrogen Today R59.0 - Localized enlarged lymph nodes CT abdomen pelvis w IV con Today R59.0 - Localized enlarged lymph nodes Creatinine Today R59.0 - Localized enlarged lymph nodes Coding Level of Care Code Global (18043) Diagnoses Umbilical hernia K42.9
== END 2024-04-29 11:20 | disposition home or self-care (01) ==
PROVIDERS: PCP Family Medicine; Visit Provider Surgery
DX: K42.9 Umbilical hernia without obstruction or gangrene (principal); Z09 Encounter for follow-up examination after completed treatment for conditions other than malignant neoplasm
CPT/HCPCS: 99212

== ENCOUNTER → 2024-04-29 10:57 | Outpatient (BNVA) | payer OTHER, SELFPAY | PROVIDERS: PCP Family Medicine; Visit Provider Surgery | DX: Z48.815 Encounter for surgical aftercare following surgery on the digestive system (principal); Z98.890 Other specified postprocedural states | CPT/HCPCS: 99212 ==

== ENCOUNTER 2024-05-22 09:51 | Outpatient (AMB) | payer OTHER, SELFPAY ==
--- NOTE | 2024-05-22 09:52 | A.OFFVIS_ITS ---
Vital Signs 3 05/22/24 09:54 Height 5 ft 9 in Weight 211 lb 10.3 oz BMI 31.3 BP 121/91 H Blood Pressure Location Lt brachial Position Sitting Pulse 76 Intake Visit Reasons: follow up per patient r/s from March Intake Note: Silvestre presents to in office follow up of IBS. CC: Patient reports that he had an umbilical hernia about a month ago. States that he does good as long as he does not eat out on certain places. 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 He does not appear to have any significant food allergies contributing to his symptoms.? He was educated that allergy versus intolerance of different things and intolerance is are not something easily diagnosed via last testing, I encourage indicator of food diarrhea and avoid foods that seem to cause him trouble.? Will send to Dr. Vazquez re: renal cyst. Needs CT. Will start dicyclomine as the diarrhea is intermittent. Pancraetic elastase not yet back. (appears never to have been returned by pt). Again, he has never had a colonoscopy so we should discuss this at the next visit. ROV 6 weeks. ? ? ? Medications: New dicyclomine 20 mg? PO QID 30 days PRN 120 tabs 3RF d iarrhea R19.7 - Diarrhea, unspecified ? Laboratory Tests 03/11/24 09:45 WBC 4.3 L Hgb 17.1 Hct 49.9 Plt Count 225 Estimated GFR > 60 Total Bilirubin 1.1 H AST 26 ALT 43 H Alkaline Phosphatase 58 TSH 2.02 TODAY'S VISIT PATIENT HAS BEEN LOST TO FOLLOW-UP SINCE 06/2022 He continues to do well with his bowels and recently had umbilical hernia surgery and is doing very well. He is agreeable to scheduling a colonoscopy. THis will be his first colonoscopy. He denies any cardiac or respiratory problems. There are no prior problems with anesthesia or sedation. No ID problems No known FHX crc or polyps. He would like it in October r/t his busy season is . 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 [facility] Medical History Elevated cholesterol Surgical History History of umbilical hernia repair (~04/16/24) History of back surgery Family History Other Mental health disorder Social History Housing: Apartment Patient Tobacco Use Status: Never used Tobacco e-Cigarette/Vaping Use: Never Used Second Hand Smoke Exposure: No Current occupational status: employed Current occupational exposures/hazards: No Cognitive needs: No Hearing needs: No Vision needs: No Review of Systems ENT Reports Normal hearing present Neuro Reports Normal hearing present and Denies Abnormal speech present Physical Exam Vital Signs: Last Vital Signs Pulse 76 05/22/24 09:54 BP 121/91 H 05/22/24 09:54 BMI result Body Mass Index 31.3 Const General: cooperative, no acute distress, well developed and well groomed Nutritional Appearance: average body habitus and well nourished Orientation/consciousness: oriented to person, oriented to place and oriented to time Limitations: No language barrier HEENT Head: Yes normocephalic and Yes atraumatic Eyes General: appearance normal, both eyes and all related structures Pupils: Equal, round and reactive pupils present Neck Neck: Yes normal visual inspection and Yes no lymphadenopathy Thyroid: Thyroid normal Resp Effort & Inspection: normal respiratory effort and able to speak in complete sentences Auscultation: clear to auscultation bilaterally Cardio Rate: regular rate Rhythm: regular rhythm Heart sounds: Normal, physiologic split S2 sound present Peripheral pulses: radial pulses present and posterior tibial pulses present GI Inspection: No distended, No Abdominal panniculus present, Yes obesity and Yes scar Palpation (GI): Soft to palpation, nontender, no guarding, not rigid and No hepatosplenomegaly present Percussion: Yes normal to percussion Auscultation: normal bowel sounds Rectal Exam - Male: Yes deferred Abdomen image: 2 1. surgical scar Skin General skin exam: no rashes or lesions noted, turgor normal, skin not dry, no jaundice, No spider nevi and no striae Rashes: no rashes Nails: normal Neuro General: oriented to person, oriented to place and oriented to time Cranial nerves: Yes Equal, round and reactive pupils present and Yes Normal hearing present Speech: No Abnormal speech present Extrem General: Yes normal to inspection, No clubbing, No cyanosis and No edema Psych Appearance: grossly normal and well kempt Mental Status: mental status grossly normal Speech and movement: Normal speech and movement present Affect: normal affect Attitude: cooperative Thought process: Normal thought process present and not confabulating Thought content: Normal thought content present Insight: Good insight present (Psych) Judgement: Good judgement present (Psych) Assessment & Plan Assessment & Plan (1) Pre-op examination: Code(s): Z01.818 - Encounter for other preprocedural examination Category: Medical Plan PATIENT HAS BEEN LOST TO FOLLOW-UP SINCE 06/2022 He continues to do well with his bowels and recently had umbilical hernia surgery and is doing very well. He is agreeable to scheduling a colonoscopy. THis will be his first colonoscopy. He denies any cardiac or respiratory problems. There are no prior problems with anesthesia or sedation. No ID problems No known FHX crc or polyps. He would like it in October r/t his busy season is August/September. 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 Orders: Orders 2 Colonoscopy - GI Use Only Today Z01.818 - Encounter for other preprocedural examination Medications: New 2 peg 3350-electrolytes 236-22.74-6.74 -5.86 gram (Golytely) until fecal effluent is clear; do not exceed a total volume of 2,000 mL 240 mL PO Q10M 4,000 mL 0RF 1 day Z12.11 - Encounter for screening for malignant neoplasm of colon bisacodyl (Dulcolax (bisacodyl)) 10 mg (2 x 5 mg) PO BEDTIME 4 tabs 0RF 2 days Coding Level of Care Code Est Pt Level 4 (96160) Diagnoses Pre-op examination Z01.818
[2024-05-22 09:54] VITALS: BP 121/91; PULSE 76; BMI 31.3
== END 2024-05-22 10:26 | disposition home or self-care (01) ==
PROVIDERS: PCP Family Medicine; Visit Provider Nurse Practitioner
DX: Z01.818 Encounter for other preprocedural examination (principal)
CPT/HCPCS: 99214

== ENCOUNTER 2024-05-22 09:51 | Outpatient (REF) | payer OTHER, SELFPAY ==
[2024-05-22 12:53] LABS: Blood Urea Nitrogen 11 mg/dL (9-16); Estimated Glomerular Filt Rate > 60
== END 2024-05-22 09:52 | disposition home or self-care (01) ==
LOC: HO.LAB 09:51
PROVIDERS: Absent Provider Surgery; PCP Family Medicine; Visit Provider Nurse Practitioner
DX: Z01.818 Encounter for other preprocedural examination (principal); R59.0 Localized enlarged lymph nodes
CPT/HCPCS: 36415; 82565; 84520; 99212

== ENCOUNTER 2024-07-01 07:56 | Outpatient (AMB) | payer OTHER, SELFPAY ==
--- NOTE | 2024-07-01 08:16 | A.OFFVIS_ITS ---
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 He has a past medical history of hypercholesteremia and sleep apnea. He presents to the office today as a new patient for erectile dysfunction. In discussion with the patient today he reports noting over the last few years he has been having issues with his erections. He reports he did not feel this was bothersome as he had had other issues with his back and hernia however he has since had back surgery and hernia repair and feels substantially better and now feels he has issues with erectile dysfunction. In discussion with the patient today he reports no morning erections however does feel he is able to obtain an erection. 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 He also feels him and his are extremely busy with their workload. He reports being newly diagnosed with sleep apnea and has gained approximately 30 lb in the last 3 years. We discussed at length potential causes of ED as well as further treatment options. He denies any urinary issues. He denies urinary urgency, urinary frequency, incontinence, nocturia, hematuria, dysuria, foul smelling urine, changes to urinary stream, flank pain, fever, and or chills. He is happy with his current voiding parameters. In office urinalysis results reviewed with the patient today. In review of patient's chart it appears PSA and testosterone were ordered and obtained. These results were reviewed with the patient today. PSA: 03/25 0.6 Testosterone: 03/25 530 Free testosterone: 03/25 48.8 He discusses upcoming colonoscopy in October. He denies any previous trauma to the area. He otherwise offers no other issues or concerns at this time. [facility] Medical History Elevated cholesterol Surgical History History of umbilical hernia repair (~04/16/24) History of back surgery Family History Other Mental health disorder Social History Housing: Apartment Patient Tobacco Use Status: Never used Tobacco e-Cigarette/Vaping Use: Never Used Second Hand Smoke Exposure: No Current occupational status: employed Current occupational exposures/hazards: No Cognitive needs: No Hearing needs: No Vision needs: No Review of Systems Const All systems reviewed & are unremarkable except as noted in HPI and below Physical Exam Const General: cooperative, healthy appearing, comfortable, no acute distress, well developed, alert and awake Orientation/consciousness: patient oriented x3 Limitations: no limitations HEENT Head: Yes normal to inspection, Yes normocephalic and Yes atraumatic Ears: hearing grossly normal bilaterally Eyes General: appearance normal, both eyes and all related structures Neck Neck: Yes normal visual inspection and Yes trachea midline Chest Chest palpation & inspection: normal inspection of the chest Resp Effort & Inspection: normal respiratory effort and able to speak in complete sentences Cardio Rate: regular rate GI Inspection: Yes normal to inspection General: Yes no CVA tenderness Back/Spine/Pelvis Back: no CVA tenderness Skin General skin exam: no rashes or lesions noted Neuro General: patient oriented x3 Extrem General: Yes normal to inspection Psych Appearance: grossly normal and well kempt Mental Status: mental status grossly normal Speech and movement: Normal speech and movement present and Clear speech present Affect: normal affect Attitude: cooperative Thought process: Normal thought process present Thought content: Normal thought content present Insight: Fair insight present (Psych) Judgement: Fair judgement present (Psych) Results AMB Urinalysis, Automated UA Leukoctes 0 Popeye/uL Last Edit by Deandre Johnson on 07/01/24 08:28 UA Nitrite Last Edit by Deandre Johnson on 07/01/24 08:28 UA Urobilinogen 0.2 mg/dL Last Edit by Deandre Johnson on 07/01/24 08:28 UA Protein 0 mg/dL Last Edit by Deandre Johnson on 07/01/24 08:28 UA pH 6.0 Last Edit by Deandre Johnson on 07/01/24 08:28 UA Blood 0 Ludin/uL Last Edit by Deanrde Johnson on 07/01/24 08:28 UA Specific [place] 1.030 Last Edit by Deandre Johnson on 07/01/24 08:28 UA Ketone Positive Last Edit by Deandre Johnson on 07/01/24 08:28 UA Bilirubin 0 mg/dL Last Edit by Deandre Johnson on 07/01/24 08:28 UA Glucose 0 mg/dL Last Edit by Deandre Johnson on 07/01/24 08:28 Results Reviewed Results Reviewed: Laboratory Last Values Urine pH (Auto) 6.0 07/01/24 08:19 Specific [place] (Auto) 1.030 07/01/24 08:19 Urine Protein (Auto) 0 mg/dL 07/01/24 08:19 Glucose (UA)(Auto) 0 mg/dL 07/01/24 08:19 Urine Ketones (Auto) Positive 07/01/24 08:19 Urine Blood (Auto) 0 Ludin/uL 07/01/24 08:19 Urine Bilirubin (Auto) 0 mg/dL 07/01/24 08:19 Urine Urobilinogen (Auto) 0.2 mg/dL 07/01/24 08:19 Leukocyte Esterase (Auto) 0 Popeye/uL 07/01/24 08:19 Assessment & Plan Assessment & Plan (1) Erectile dysfunction: Code(s): N52.9 - Male erectile dysfunction, unspecified Category: Medical Plan In office urinalysis results reviewed with the patient today; as noted above. Recent testosterone and PSA results reviewed with the patient today; as noted above. We discussed at length potential causes of ED We discussed affects of poor sleep, sleep apnea, weight gain, and hypercholesteremia in relation to erectile dysfunction. Start 5 mg of Cialis daily as discussed and prescribed. Start/continue p.r.n. sildenafil. Patient reports be happy with current voiding parameters. Follow-up in 3 months; or sooner with any issues, concerns, and or questions. Orders: Orders AMB Urinalysis Automated Today Z13.9 - Encounter for screening, unspecified Medications: New tadalafil (Cialis) [facility] [id number] 5 mg PO DAILY 30 tabs 3RF 30 days Patient Instructions: The patient had an opportunity to ask questions regarding the treatment plan. All questions were answered. Physical exam, labs, and imaging were discussed and reviewed in detail. As well as risks, benefits, and discussion of treatment choices. No major barriers to understanding were identified. The patient expressed understanding and agreement with the above treatment plan. The patient was made aware they should contact our office by phone for worsening of their current condition, the appearance of new symptoms, or with any questions or concerns. Compliance is encouraged with any medications and follow up testing that is ordered. It is a privilege to be allowed the opportunity to participate in? your urological care.? Again, if you have any questions or concerns If you have any questions or concerns please do not hesitate to contact me. The office is [phone]. This note is constructed using voice recognition software. While every effort has been made to ensure accuracy retail sales manager errors may have been included. Yours sincerely, YVONNE Robertson Coding Level of Care Code New Pt Level 4 (72263) Diagnoses Erectile dysfunction N52.9
== END 2024-07-01 08:47 | disposition home or self-care (01) ==
PROVIDERS: PCP Family Medicine; Visit Provider Nurse Practitioner Family
DX: N52.9 Male erectile dysfunction, unspecified (principal); Z13.9 Encounter for screening, unspecified
CPT/HCPCS: 99204

== ENCOUNTER → 2024-07-01 07:56 | Outpatient (BNVA) | payer OTHER, SELFPAY | PROVIDERS: PCP Family Medicine; Visit Provider Nurse Practitioner Family | DX: N52.9 Male erectile dysfunction, unspecified (principal); R68.82 Decreased libido; E78.00 Pure hypercholesterolemia, unspecified | CPT/HCPCS: 81003; 99202 ==

== ENCOUNTER 2024-10-07 08:49 | Outpatient (AMB) | payer OTHER, SELFPAY ==
--- NOTE | 2024-10-07 08:49 | A.OFFVIS_ITS ---
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 He has a past medical history of hypercholesteremia and sleep apnea. He is being followed up on today via video telehealth for his erectile dysfunction. Of note, patient was last seen approximately 4 months ago at which time he was started on low-dose Cialis. In discussion with the patient today he reports significant improvement in obtaining and maintaining his erections with daily dosing of Cialis. He reports he has not had to use p.r.n. dosing prior to sexual activity. He discusses having morning erections almost daily. 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 However now that the holidays are over he is and has had a decrease in his workload. He reports being newly diagnosed with sleep apnea and has gained approximately 30 lb in the last 3 years. He denies any urinary issues. He denies urinary urgency, urinary frequency, incontinence, nocturia, hematuria, dysuria, foul smelling urine, changes to urinary stream, flank pain, fever, and or chills. He is happy with his current voiding parameters. PSA and testosterone labs are as follows: PSA: 03/25 0.6 Testosterone: 03/25 530 Free testosterone: 03/25 48.8 He discusses upcoming colonoscopy in October. He denies any previous trauma to the area. He otherwise offers no other issues or concerns at this time. [facility] Medical History Elevated cholesterol Surgical History History of umbilical hernia repair (~04/16/24) History of back surgery Family History Other Mental health disorder Social History Housing: Apartment Patient Tobacco Use Status: Never used Tobacco e-Cigarette/Vaping Use: Never Used Second Hand Smoke Exposure: No Current occupational status: employed Current occupational exposures/hazards: No Cognitive needs: No Hearing needs: No Vision needs: No Review of Systems Const All systems reviewed & are unremarkable except as noted in HPI and below Physical Exam Const General: cooperative, healthy appearing, comfortable, no acute distress, well developed, alert and awake Orientation/consciousness: patient oriented x3 Resp Effort & Inspection: normal respiratory effort and able to speak in complete sentences Neuro General: patient oriented x3 Psych Appearance: grossly normal and well kempt Mental Status: mental status grossly normal Speech and movement: Clear speech present Affect: normal affect Attitude: cooperative Thought process: Normal thought process present Thought content: Normal thought content present Insight: Fair insight present (Psych) Judgement: Fair judgement present (Psych) Telehealth Telehealth Telehealth Platform: [employer] Location of provider rendering services: practice address Location of patient: address on file Patient Identification confirmed using: Name, : Yes Telehealth method: video Patient verbally consented to treatment: Yes Patient verbally consented to billing insurance company: Yes Patient informed of any privacy concerns related to visit: Yes Minutes spent on Phone/Video with Pt.: 15 Assessment & Plan Assessment & Plan (1) Decreased libido: Code(s): R68.82 - Decreased libido Category: Medical Plan Continue 5 mg of Cialis daily as discussed; refill provided. Patient currently denies any bothersome urinary issues. He reports be happy with current voiding parameters. We discussed at length continuation of lifestyle modifications to assist with ED as well as overall health and well-being. Will obtain PSA in 6 months. Follow-up in 6 months with PSA; or sooner with any issues, concerns, and or questions. Orders: Orders Prostate Specific Antigen 6 Months R68.82 - Decreased libido Medications: Changed From tadalafil (Cialis) [facility] [address] [id number] 5 mg PO DAILY 30 tabs 3RF 30 days To tadalafil (Cialis) [facility] [address] [id number] 5 mg PO DAILY 90 tabs 3RF 90 days Patient Instructions: The patient had an opportunity to ask questions regarding the treatment plan. All questions were answered. Physical exam, labs, and imaging were discussed and reviewed in detail. As well as risks, benefits, and discussion of treatment choices. No major barriers to understanding were identified. The patient expressed understanding and agreement with the above treatment plan. The patient was made aware they should contact our office by phone for worsening of their current condition, the appearance of new symptoms, or with any questions or concerns. Compliance is encouraged with any medications and follow up testing that is ordered. It is a privilege to be allowed the opportunity to participate in? your urological care.? Again, if you have any questions or concerns If you have any questions or concerns please do not hesitate to contact me. The office is [phone]. This note is constructed using voice recognition software. While every effort has been made to ensure accuracy art historian errors may have been included. Yours sincerely, YVONNE Robertson Coding Level of Care Code Tele Est Pt Level 3 (73720) Diagnoses Decreased libido R68.82
== END 2024-10-07 09:43 | disposition home or self-care (01) ==
LOC: HO.HUSH 08:49
PROVIDERS: PCP Family Medicine; Visit Provider Nurse Practitioner Family
DX: R68.82 Decreased libido (principal)
CPT/HCPCS: 99213

== ENCOUNTER → 2024-10-07 08:49 | Outpatient (BNVA) | payer OTHER, SELFPAY | PROVIDERS: PCP Family Medicine; Visit Provider Nurse Practitioner Family ==

== ENCOUNTER 2024-11-04 10:21 | Outpatient (AMB) | payer OTHER, SELFPAY ==
--- NOTE | 2024-11-04 10:46 | A.OFFVIS_ITS ---
Vital Signs 11/04/24 10:47 Height 5 ft 9 in Weight 209 lb BMI 30.9 BP 108/72 Blood Pressure Location Lt brachial Position Sitting Pulse 88 Pulse Source Pulse Oximeter Pulse Oximetry (%) 97 Oxygen Delivery Method Room Air Intake Visit Reasons: INP-SANTY Adult Secondary Education Instructor Required: No Accompanied by: Self / Same As Patient Allergies No Known Allergies Allergy (Verified 11/04/24 10:50) Do you need a note to return to daycare/school/sports/work: No HPI Comments Details: 54 year old male presents for sleep evaluation per PCP. He snores so loud, tosses and turns all night long. He goes to sleep at midnight and gets up at 7:30am, then falls back asleep, works from 10am to 9pm. He denies morning headaches. HST was inconclusive due to pain. He feels like he is SOB when sleeping on the left side and wakes up gasping for air. BMI is 30, he is trying to lose weight. 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 He has IBS. RLS: He has violent jerks of the legs when sleeping, his legs get sore and he wakes himself up at night. He straightens them and they feel better. He denies burning, numbness, tingling, or cramps. He has radiculopathy and nerve decompression. [facility] Medical History Elevated cholesterol Surgical History History of umbilical hernia repair (~04/16/24) History of back surgery Family History Other Mental health disorder Social History Housing: Apartment Patient Tobacco Use Status: Never used Tobacco e-Cigarette/Vaping Use: Never Used Second Hand Smoke Exposure: No Current occupational status: employed Current occupational exposures/hazards: No Cognitive needs: No Hearing needs: No Vision needs: No Review of Systems Const All systems reviewed & are unremarkable except as noted in HPI and below ENT Reports Normal hearing present Neuro Reports Normal hearing present Physical Exam Vital Signs: Last Vital Signs Pulse 88 11/04/24 10:47 BP 108/72 11/04/24 10:47 Pulse Ox 97 11/04/24 10:47 Oxygen Delivery Method Room Air 11/04/24 10:47 BMI result Body Mass Index 30.9 Const General: cooperative and no acute distress Nutritional Appearance: obese Orientation/consciousness: patient oriented x3 Limitations: no limitations HEENT Head: Yes normocephalic Throat: Yes other (mallampati score 4) Neck Neck: Yes full ROM and Yes supple Resp Effort & Inspection: normal respiratory effort and able to speak in complete sentences Auscultation: clear to auscultation bilaterally Neuro General: patient oriented x3, gait normal and moves all extremities Cranial nerves: Yes Bilaterally intact EOM present, Yes Normal facial strength present, Yes Midline tongue present, Yes Normal hearing present, Yes Ability to bilaterally rotate head present and Yes Ability to bilaterally elevate shoulders present Cognition (Neuro): normal cognition Gait exam (Neuro): Normal gait present Psych Appearance: grossly normal Mental Status: mental status grossly normal Speech and movement: Normal speech and movement present Affect: normal affect Attitude: cooperative Results Reviewed Results Reviewed: CT/CT abdomen wo/w IV con IMPRESSION: Abnormal upper abdominal retroperitoneal lymph nodes of unknown etiology. There is mild hepatic attenuation likely fatty infiltration. No focal lesion seen. Simple cyst midpole right kidney. There are few tiny hypodensities seen in the upper pole. Left kidney is unremarkable. [facility] - Surgical procedure impingement, sciatica 2020- L Hip pain, Sciatic nerve pain, radiating down the left leg. Assessment & Plan Assessment & Plan (1) Loud snoring: Code(s): R06.83 - Snoring Category: Medical (2) Retroperitoneal lymphadenopathy: Code(s): R59.0 - Localized enlarged lymph nodes Category: Medical Plan Excessive daytime fatigue: Will f/u with in lab sleep study. Excessive Daytime fatigue: Labs to r/o deficiencies Orders: Orders Complete Blood Count no Diff Today R06.83 - Snoring, R53.82 - Chronic fatigue, unspecified Comprehensive Met. Panel Today R53.82 - Chronic fatigue, unspecified TSH reflex Free T4 Today F09 - Unspecified mental disorder due to known physiological condition Vitamin B12 and Folate Today R53.82 - Chronic fatigue, unspecified Vitamin D 25-OH Total Today R53.82 - Chronic fatigue, unspecified Methylmalonic Acid Today R59.0 - Localized enlarged lymph nodes Hemoglobin A1c Today R59.0 - Localized enlarged lymph nodes RT PSG in-lab sleep study Today R06.83 - Snoring Homocysteine Today R53.82 - Chronic fatigue, unspecified Medications: New magnesium oxide 400 mg PO DAILY 30 tabs 3RF Sleep disturbaces MDD 400mg MDD R53.83 - Other fatigue pyridoxine (vitamin B6) 250 mg PO DAILY 30 tabs 3RF RLS MDD 250mg MDD G25.81 - Restless legs syndrome Coding Level of Care Code Est Pt Level 4 (12787) Diagnoses Loud snoring R06.83 Retroperitoneal lymphadenopathy R59.0 Time Spent (min) 30 Comment Worsening Fatigue Sleep Questionnaire Difficulty falling asleep: Yes Difficulty staying asleep?: Yes Number of arousals: 3-4 times Snoring: Yes Witnessed apneas: Yes Gasping arousals: No Nocturia: No GERD: Yes Vivid dreams: No Acting out dreams: No Abnormal behavior in sleep: No Abnormal movements in sleep: No Morning headaches: No Excessive daytime sleepiness: Yes Daytime naps: No Restless legs: Yes Hallucinations: No Sleep paralysis: No Drop attacks: No Sleep Study: Yes CPAP: No
[2024-11-04 10:47] VITALS: BP 108/72; PULSE 88; O2SAT 97; BMI 30.9
--- OUTSIDE RECORDS SUMMARY | 2024-11-04 11:04 | XMS_ITS | Clinical Summary ---
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 Name Role Phone Unavailable Primary Care Provider Unavailabl e Social History Tobacco Use Types Packs/Day Years Used Date Smoking Tobacco: Never Assessed Sex and Gender Information Value Date Recorded Sex Assigned at Not on file Gender Identity Not on file Sexual Orientation Not on file Plan of Treatment Health Maintenance Due Date Last Done Comments DTaP,Tdap,and Td Vaccines (1 - Tdap) 1990 Hepatitis B Vaccines (1 of 3 - 19+ 3-dose series) 1990 Zoster Vaccines (1 of 2) 2021 COVID-19 Vaccine (2023-2 5 season) 2024 Influenza Vaccine (#1) 2024 HIB Vaccines Aged Out No longer eligi ble based on patient's age to complete this topic HPV Vaccines Aged Out No longer eligi ble based on patient's age to complete this topic Hepatitis A Vaccines Aged Out No long er eligible based on patient's age to complete this topic IPV Vaccines Aged Out No longer eligi ble based on patient's age to complete this topic MMR Vaccines Aged Out No longer eligi ble based on patient's age to complete this topic Meningococcal ACWY Vaccine Aged Out N o longer eligible based on patient's age to complete this topic Pneumococcal Vaccine: Pediat rics (0 to 5 Years) and At-Risk Patients (6 to 64 Years) Aged Out No longer eligible b ased on patient's age to complete this topic RSV Immunization Patients Un rose 20 months Aged Out No longer eligible b ased on patient's age to complete this topic Varicella Vaccines Aged Out No longer eligible based on patient's age to complete this topic
== END 2024-11-04 11:44 | disposition home or self-care (01) ==
PROVIDERS: PCP Family Medicine; Visit Provider Physician Assistant Medical
DX: R06.83 Snoring (principal); R59.0 Localized enlarged lymph nodes
CPT/HCPCS: 99214

== ENCOUNTER → 2024-11-04 10:21 | Outpatient (BNVA) | payer OTHER, SELFPAY | PROVIDERS: PCP Family Medicine; Visit Provider Nurse Practitioner Family | DX: R06.83 Snoring (principal); R59.0 Localized enlarged lymph nodes | CPT/HCPCS: 99212 ==

== ENCOUNTER 2024-11-08 10:33 | Day surgery (SDC) | payer OTHER, SELFPAY ==
[2024-11-06 15:20] VITALS: BMI 30.9
--- NOTE | 2024-11-07 10:52 | P.CONAN_ITS ---
Documented by User: Erin Lancaster NP 11/07/24 10:54 HPI - Anesthesia Eval Consult details Narrative: 54yo M for Colonoscopy s/p umbilical hernia repair 04/2024 with GA-ETT 7.5 - unsuccessful LMA, grade 3 with proview, OGT to decompress stomach PMFSH Active Problems Active Problems: All Active Problems RLS (restless legs syndrome) (Acute) Pre-op examination (Acute) Decreased libido (Acute) Lumbar radiculitis (Acute) Snoring (Acute) Umbilical hernia (Acute) Adult general medical examination (Acute) Retroperitoneal lymphadenopathy (Acute) Fatigue (Acute) Neoplasm of uncertain behavior of skin (Acute) Back pain (Acute) Renal mass (Acute) Diarrhea (Acute) Daytime sleepiness (Acute) Loud snoring (Acute) Screening for colon cancer (Acute) Low HDL (under 40) (Acute) Erectile dysfunction (Acute) Left leg weakness (Acute) Screening for prostate cancer (Acute) Class 1 obesity with body mass index (BMI) of 30.0 to 30.9 in adult (Acute) IBS (irritable bowel syndrome) (Acute) Epicondylitis (Acute) Elevated transaminase level (Acute) Elevated fasting blood sugar (Acute) Hyperlipidemia (Acute) Past Medical History Medical History Elevated cholesterol Family History Family History Other Mental health disorder Family history of problems with anesthesia: No Surgical History Surgical History History of umbilical hernia repair (04/16/24) History of back surgery History of Problems with Anesthesia: No Social History Social History Housing: Apartment Are you a primary health care aide to a significant other at home: No Do you presently have visiting nurse or other home services: No Patient Tobacco Use Status: Never used Tobacco e-Cigarette/Vaping Use: Never Used Second Hand Smoke Exposure: No Have you been hit, kicked, punched, or otherwise hurt by someone within the past year? If so, by whom?: No Are you DNR?: No Advance Directives: No Advance Directives Information Provided: Yes Recently lost weight without trying: No Nutrition Risks: No Nutritional Risk Current occupational status: employed Current occupational exposures/hazards: No Cognitive needs: No Hearing needs: No Vision needs: No Meds Allergies Allergy/AdvReac Type Severity Reaction Status Date / Time No Known Allergies Allergy Verified 11/08/24 11:12 Exam Height,Weight and Vital Signs: Height 5 ft 9 in Weight 94.801 kg Assessment and Plan Assessment Anesthesia Assessment: Chart Reviewed Final Anesthetic Review Family History of Problems with Anesthesia: No History of Problems with Anesthesia: No Documented by User: Tammy Oh MD 11/08/24 12:26 [facility] Past Medical History Medical History Elevated cholesterol Family History Family History Other Mental health disorder Surgical History Surgical History History of umbilical hernia repair (04/16/24) History of back surgery Social History Social History Housing: Apartment Are you a primary health care aide to a significant other at home: No Do you presently have visiting nurse or other home services: No Patient Tobacco Use Status: Never used Tobacco e-Cigarette/Vaping Use: Never Used Second Hand Smoke Exposure: No Have you been hit, kicked, punched, or otherwise hurt by someone within the past year? If so, by whom?: No Are you DNR?: No Advance Directives: No Advance Directives Information Provided: Yes Recently lost weight without trying: No Nutrition Risks: No Nutritional Risk Current occupational status: employed Current occupational exposures/hazards: No Cognitive needs: No Hearing needs: No Vision needs: No Meds Allergies Allergy/AdvReac Type Severity Reaction Status Date / Time No Known Allergies Allergy Verified 11/08/24 11:12 Exam Airway Mallampati Class: III TM Dist: >3cm Neck ROM: Full Loose/Missing/Broken Teeth: No Heart: RRR Lungs: CTA Assessment and Plan Assessment Anesthesia Assessment: Anesthesia Plan Discussed Final Anesthetic Review NPO: Yes ASA Class: II Final Preanesthetic Review: Meds/Allgs Chart Reviewed, Consent Obtained/Reviewed and Anes Risks/Benef Reviewed Patient Risk: Low Procedure Risk: Low Anesthetic Plan Anesthetic Plan: MAC: Disposition: Standard PACU
--- NOTE | 2024-11-08 10:51 | P.HPSUR_ITS ---
Pre-Procedural Eval Section A - 24 Hr Update-Section A only Date of Service: 11/08/24 The patient is an INPATIENT: No The patient has been examined within 24 hours of the surgical procedure. The History & Physical has been completed within 30 days and I have reviewed it.: No Section B - Complete if H&P > 30 days Chief Complaint: screening Relevant Family History (Specify if Yes): No Relevant Social History: None Present Medications: see Short Stay Collaborative assessment Medical History: Significant History (Hyperlipidemia, restless leg syndrome, IBS ) History of Previous Operations: Relevant previous surgery/procedure and date(s) (History of umbilical hernia repair (~04/16/24) History of back surgery) Allergies: Allergies Allergy/AdvReac Type Severity Reaction Status Date / Time No Known Allergies Allergy Verified 11/04/24 10:50 Review of Systems Sugical H&P ROS: Negative: Constitution, Cardiovascular, Respiratory and Gastrointestinal Exam Surgical H&P Exam: Normal: Heart, Normal: Lungs, Normal: Extremities and Normal: Abdomen Plan Diagnosis/Plan: Unchanged I have reviewed the history and physical and performed a pertinent physical examination on my patient. No changes have occurred unless specified. Time Spent With Patient Time: Total time managing care of this patient today ____ minutes.
[2024-11-08 11:11] VITALS: BMI 30.1
[2024-11-08] MEDS: Lactated Ringers 1,000 ML 100 ML IVCONT (11:15)
[2024-11-08 11:31] VITALS: BP 130/92; PULSE 78; RESP 18; TEMP 36.7; O2SAT 97
--- OUTSIDE RECORDS SUMMARY | 2024-11-08 11:40 | XMS_ITS | Clinical Summary ---
Author Organization [facility] it Address [address] [place] [address] Care Team Providers Care Podiatric Medicine Professor Name Role Phone Unavailable Primary Care Provider [...]
--- NOTE | 2024-11-08 11:53 | P.CONAN_ITS ---
[facility] Active Problems Active Problems: All Active Problems RLS (restless legs syndrome) (Acute) Pre-op examination (Acute) Decreased libido (Acute) Lumbar radiculitis (Acute) Snoring (Acute) Umbilical hernia (Acute) Adult general medical examination (Acute) Retroperitoneal lymphadenopathy (Acute) Fatigue (Acute) Neoplasm of uncertain behavior of skin (Acute) Back pain (Acute) Renal mass (Acute) Diarrhea (Acute) Daytime sleepiness (Acute) Loud snoring (Acute) Screening for colon cancer (Acute) Low HDL (under 40) (Acute) Erectile dysfunction (Acute) Left leg weakness (Acute) Screening for prostate cancer (Acute) Class 1 obesity with body mass index (BMI) of 30.0 to 30.9 in adult (Acute) IBS (irritable bowel syndrome) (Acute) Epicondylitis (Acute) Elevated transaminase level (Acute) Elevated fasting blood sugar (Acute) Hyperlipidemia (Acute) Past Medical History Medical History Elevated cholesterol Functional capacity: independent ambulation Family History Family History Other Mental health disorder Family history of problems with anesthesia: No Surgical History Surgical History History of umbilical hernia repair (04/16/24) History of back surgery History of Problems with Anesthesia: No Social History Social History Housing: Apartment Are you a primary career and technology education teacher to a significant other at home: No Do you presently have visiting nurse or other home services: No Patient Tobacco Use Status: Never used Tobacco e-Cigarette/Vaping Use: Never Used Second Hand Smoke Exposure: No Have you been hit, kicked, punched, or otherwise hurt by someone within the past year? If so, by whom?: No Are you DNR?: No Advance Directives: No Advance Directives Information Provided: Yes Recently lost weight without trying: No Nutrition Risks: No Nutritional Risk Current occupational status: employed Current occupational exposures/hazards: No Cognitive needs: No Hearing needs: No Vision needs: No Meds Allergies Allergy/AdvReac Type Severity Reaction Status Date / Time No Known Allergies Allergy Verified 11/08/24 11:12 Active Medications: Current Medications Lactated Ringer's (Lr) 1,000 mls @ 100 mls/hr IVCONT .Q10H ABEL Last Admin: 11/08/24 11:15 Dose: 100 mls/hr Exam Height,Weight and Vital Signs: Height 5 ft 9 in Weight 92.533 kg Last Vital Signs Temp 98.0 F 11/08/24 11:31 Pulse 78 11/08/24 11:31 Resp 18 11/08/24 11:31 BP 130/92 H 11/08/24 11:31 Pulse Ox 97 11/08/24 11:31 O2 Del Method Room Air 11/08/24 11:31 Airway Mallampati Class: II TM Dist: >3cm Neck ROM: Full Heart: RRR Lungs: CTA Assessment and Plan Assessment Anesthesia Assessment: Anesthesia Plan Discussed and Chart Reviewed Final Anesthetic Review Family History of Problems with Anesthesia: No History of Problems with Anesthesia: No NPO: Yes ASA Class: II Final Preanesthetic Review: Meds/Allgs Chart Reviewed, Consent Obtained/Reviewed and Anes Risks/Benef Reviewed Patient Risk: Low Procedure Risk: Low Anesthetic Plan Anesthetic Plan: MAC: Disposition: Standard PACU
--- NOTE | 2024-11-08 12:49 | P.OPN-COLO_ITS ---
Colonoscopy Operative Note Operative Note Date of Service: 11/08/24 Narrative: COLONOSCOPY TILL CECUM WITH BIOPSIES, SNARE POLYPECTOMY AND HEMOCLIP PLACEMENT Pre-op diagnosis: Colon cancer screening (First colon). Post-op diagnosis:? Colon polyps, Diverticulosis, hemorrhoids Endoscopist:? Royer Johnson MD Anesthesia:?MAC Consent: Indications for the procedure and potential complications of bleeding, perforation, reaction to medications and missed diagnosis were discussed with the patient and informed consent was obtained. Instrument: Olympus CF H 190 L variable stiffness adult colonoscope Monitoring: Vital signs and clinical assessment, intermittent blood pressure monitoring, continuous EKG monitoring, Pulse oximetry and Carbon Dioxide monitoring were done throughout the procedure. Please see anesthesia flowsheet. Colon withdrawl time was 20 minutes. Procedure: The patient was placed in the left lateral decubitis position and pre-procedure medications were administered. After a digital rectal examination of the ano-rectum, the video colonoscope was inserted into the rectum and advanced through the colon to the cecum. The colonoscope was slowly withdrawn in a retrograde panoramic fashion and the colon mucosa was carefully examined including a retroflexed view of the rectum. Findings and interventions are described below. Procedure Difficulty: without difficulty Findings: Terminal Ileum: Not evaluated Cecum: Normal Ascending Colon: Normal Transverse Colon: Normal Descending Colon: Normal Sigmoid Colon: A 10-12 mm sessile polyp at 50 cms - removed with hot snare. Polypectomy site was closed with 1 hemoclip. Moderate diverticulosis Rectum: Normal Ano-rectum: Small internal hemorrhoids Colon preparation: Excellent after some irrigation. [place] Bowel Preparation Scale Right colon; 3 Transverse colon: 3 Left colon; 3 (0 = Unprepared colon segment with mucosa not seen due to solid stool that cannot be cleared. 1 = Portion of mucosa of the colon segment seen, but other areas of the colon segment not well seen due to staining, residual stool and/or opaque liquid. 2 = Minor amount of residual staining, small fragments of stool and/or opaque liquid, but mucosa of colon segment seen well. 3 = Entire mucosa of colon segment seen well with no residual staining, small fragments of stool or opaque liquid) Impression and Post Procedure Diagnosis: Colonoscopy Findings: One medium sized polyp was removed Moderate diverticulosis seen in the sigmoid colon Small hemorrhoids on retroflexed exam. Plan: Pt has a FU appointment on 11/22/24 with Loli Key NP. Repeat Colonoscopy in 3 years if polyps are adenomatous and 10 year if polyps are hyperplastic. Above findings were reviewed with the patient and relevant handouts were given and the discharge area.
[2024-11-08 12:53] VITALS: BP 138/56; PULSE 84; RESP 16; TEMP 36.3; O2SAT 96
--- NOTE | 2024-11-08 13:00 | HO.POSTANES ---
Post Anesthesia Evaluation Post Anesthesia Evaluation Date of Service: 11/08/24 Vital Signs: Vital Signs Temp Pulse Resp BP Pulse Ox O2 Del Method 11/08/24 12:53 97.4 F 84 16 138/56 L 96 Room Air 11/08/24 11:31 98.0 F 78 18 130/92 H 97 Room Air Anesthesia: Monitored Mental Status: Awake Pain Control: Satisfactory Nausea/Vomiting: None Hydration: Adequate Anesthesia-Related Issues: No Anes. Related Issues
[2024-11-08 13:05] VITALS: BP 135/85; PULSE 83; RESP 16; TEMP 36.3; O2SAT 96
== END 2024-11-08 13:36 | disposition home or self-care (01) ==
PROVIDERS: PCP Family Medicine; Visit Provider Internal Medicine Gastroenterology
PROC: 0DJD8ZZ Inspection of Lower Intestinal Tract, Via Natural or Artificial Opening Endoscopic (ICD-10-PCS; CPT 45378; principal; 2024-11-08 12:40)
DX: Z12.11 Encounter for screening for malignant neoplasm of colon (principal); D12.5 Benign neoplasm of sigmoid colon; K57.30 Diverticulosis of large intestine without perforation or abscess without bleeding; K64.8 Other hemorrhoids; K58.9 Irritable bowel syndrome, unspecified; E78.5 Hyperlipidemia, unspecified; G25.81 Restless legs syndrome; R19.7 Diarrhea, unspecified; Z79.899 Other long term (current) drug therapy; Z98.890 Other specified postprocedural states
CPT/HCPCS: 45385; 45380; 88305; J2003; J2704

== ENCOUNTER → 2024-11-08 10:33 | Outpatient (BNV) | payer OTHER, SELFPAY | PROVIDERS: PCP Family Medicine; Visit Provider Internal Medicine Gastroenterology | DX: Z12.11 Encounter for screening for malignant neoplasm of colon (principal); D12.5 Benign neoplasm of sigmoid colon; K57.30 Diverticulosis of large intestine without perforation or abscess without bleeding; K64.8 Other hemorrhoids | CPT/HCPCS: 45385 ==

== ENCOUNTER 2024-11-26 07:57 | Outpatient (REF) | payer OTHER, SELFPAY ==
--- NOTE | ~2024-11-26 | CT_ITS ---
EXAMINATION: CT ABDOMEN PELVIS WITH IV CONTRAST HISTORY: R59.0 - Localized enlarged lymph nodes COMPARISON: Comparison is made with the prior examination dated 07/15/2022. TECHNIQUE: CT scan of the abdomen and pelvis was performed following administration of 85 mL Omnipaque 350 using standard departmental protocol. Coronal and sagittal reformatted images were generated and reviewed. Oral contrast material was not administered at the request of the referring physician. This CT exam was performed with one or more of the following dose reduction techniques: automated exposure control, adjustment of the mA and/or kV according to patient size, use of iterative reconstruction technique. DLP: 501 mGy-cm FINDINGS: LOWER CHEST: The previously seen numerous bilateral subcentimeter pulmonary nodules have largely resolved. A few residual tiny nodules are noted at the lung bases. There is no pleural effusion. CARDIOVASCULATURE: The heart is normal in size. There is no pericardial effusion. LIVER: The liver is normal in size and contour. The liver demonstrates mildly decreased attenuation consistent with steatosis. A more focal area of decreased attenuation is noted in the inferior aspect of the right lobe without change. This likely represents more severe steatosis. No definite mass is identified. The hepatic and portal veins are patent. GALLBLADDER / BILE DUCTS: The gallbladder is unremarkable. There is no intra or extrahepatic biliary ductal dilatation. SPLEEN: The spleen is normal in size. No focal splenic lesion is identified. PANCREAS: The pancreas is unremarkable in appearance. ADRENAL GLANDS: Within normal limits. KIDNEYS/RETROPERITONEUM: No renal calculi are identified. There is no hydronephrosis. Again seen is a probable 10 mm cyst at the upper pole of the right kidney. LYMPH NODES: Again seen are enlarged celiac axis lymph nodes measuring up to 1.6 cm in size. Ritesh hepatis nodes measure up to 1.7 cm in size, also without significant change. No new lymphadenopathy. VASCULATURE: The abdominal aorta is normal in caliber. MESENTERY/PERITONEUM: No free fluid. No masses. There is no free intraperitoneal gas. STOMACH: The stomach is collapsed, limiting evaluation. SMALL BOWEL: The small bowel is normal in caliber. COLON: There is diverticulosis of the descending and sigmoid colon, without evidence of diverticulitis. There is a moderate amount of stool throughout the colon. APPENDIX: Normal. URINARY BLADDER/PELVIC ORGANS: The urinary bladder is collapsed, limiting evaluation. The prostate is normal in size. BONES / SOFT TISSUES: No suspicious bony or soft tissue abnormalities. CT/CT abdomen pelvis w IV con IMPRESSION: 1. Stable mildly enlarged celiac axis and ritesh hepatis lymph nodes. No new lymphadenopathy is seen. 2. Moderate amount of stool throughout the colon. Diverticulosis of the descending and sigmoid colon, without evidence of diverticulitis. Electronically signed by: Anders Contreras MD 11/26/2024 11:30 AM [facility]
--- OUTSIDE RECORDS SUMMARY | 2024-11-26 08:01 | XMS_ITS | Clinical Summary ---
Author Organization [facility] Address [address] [place] [address] Care Team Providers Care Statement Processor Name Role Phone Unavailable Primary Care Provider Unavailabl e Social History Tobacco Use Types Packs/Day Years Used Date Smoking Tobacco: Never Assessed Sex and Gender Information Value Date Recorded Sex Assigned at Not on file Legal Sex Male 9:46 AM EST Gender Identity Not on file Sexual Orientation Not on file Plan of Treatment Health Maintenance Due Date Last Done Comments DTaP,Tdap,and Td Vaccines (1 - Tdap) 1990 Hepatitis B Vaccines (1 of 3 - 19+ 3-dose series) 1990 Pneumococcal Vaccine: 50+ Ye ars (1 of 1 - PCV) 2021 Zoster Vaccines (1 of 2) 2021 COVID-19 Vaccine (1 - 2023-2 5 season) 2024 Influenza Vaccine (#1) 2024 [...] patient's age to complete this topic Meningococcal B Vacine Aged Out No lo nger eligible based on patient's age to complete [...]
[2024-11-26] MEDS: iohexoL 350 MG/ML 75 ML INFUS..BTL 85 ML IV (08:35)
[2024-11-27 06:16] LABS: Creatinine POC 0.8 mg/dL (0.5-1.4); GFR POC > 60
== END 2024-11-26 07:58 | disposition home or self-care (01) ==
LOC: HO.CT 07:57
PROVIDERS: PCP Family Medicine; Visit Provider Surgery
DX: R59.0 Localized enlarged lymph nodes (principal)
CPT/HCPCS: 74177; 82565; Q9967

== ENCOUNTER → 2024-11-26 07:59 | Outpatient (BNV) | payer OTHER, SELFPAY | PROVIDERS: PCP Family Medicine; Visit Provider Radiology Diagnostic Radiology | DX: R59.0 Localized enlarged lymph nodes (principal); K57.90 Diverticulosis of intestine, part unspecified, without perforation or abscess without bleeding | CPT/HCPCS: 74177 ==

== ENCOUNTER 2024-12-04 08:38 | Outpatient (AMB) | payer OTHER, SELFPAY ==
[2024-12-04 08:41] VITALS: BP 123/82; PULSE 72; BMI 31.0
--- NOTE | 2024-12-04 08:41 | A.OFFVIS_ITS ---
Vital Signs 12/04/24 08:41 Height 5 ft 9 in Weight 210 lb BMI 31.0 BP 123/82 Blood Pressure Location Rt brachial Position Sitting Pulse 72 Intake Visit Reasons: s/p CT abd pelvis 11/26 Intake Note: This patient presents for Ct-Scan follow-up. Pt c/o; reports no new complaints at this time. 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 I had scheduled him for a CT scan and he is here to discuss the findings . He denies any significant complaints. He feels well overall. He denies any fever or chills. He denies any night sweats. He denies any body malaise or unexplained weight loss. He denies any abdominal pain although he does state that he has been diagnosed to have IBS and diverticular disease. [facility] Medical History Elevated cholesterol Surgical History History of umbilical hernia repair (04/16/24) History of back surgery Family History Other Mental health disorder Social History Housing: Apartment Are you a primary caretaker resort to a significant other at home: No Do you presently have visiting nurse or other home services: No Patient Tobacco Use Status: Never used Tobacco e-Cigarette/Vaping Use: Never Used Second Hand Smoke Exposure: No Current occupational status: employed Current occupational exposures/hazards: No Cognitive needs: No Hearing needs: No Vision needs: No Review of Systems Const Denies chills and Denies fever(s) Card Denies chest pain, Denies dyspnea and Denies dyspnea on exertion Resp Denies cough, Denies dyspnea and Denies dyspnea on exertion GI Denies hematochezia and Denies change in bowel habits Denies hematuria and Denies difficulty urinating Musc Denies back pain and Denies limited range of motion Neuro Denies focal weakness and Denies convulsions Psych Denies depression and Denies mood swings Physical Exam Vital Signs: Last Vital Signs Pulse 72 12/04/24 08:41 BP 123/82 12/04/24 08:41 BMI result Body Mass Index 31.0 Const General: comfortable and no acute distress Orientation/consciousness: patient oriented x3 HEENT Other: No lymphadenopathy Neck Neck: Yes no lymphadenopathy Resp Auscultation: clear to auscultation bilaterally Cardio Rhythm: regular rhythm GI Palpation (GI): Soft to palpation, nontender and no guarding Neuro General: patient oriented x3 Assessment & Plan Assessment & Plan (1) Retroperitoneal lymphadenopathy: Code(s): R59.0 - Localized enlarged lymph nodes Category: Medical Plan: He is follow-up CT scan shows enlarged celiac axis lymph nodes measuring up to 1.6 cm in size. Ritesh hepatis nodes measure up to 1.7 cm in size, also without significant change. No new lymphadenopathy. He does state that he has had this enlarged lymph nodes for over 2 years now. He denies any systemic symptoms. I explained to him that the fact that these have remained unchanged and have not worsened in 2 years into a benign condition. As a matter fact, some of the previously seen lymph nodes in the chest have resolved. I did tell him that I would like to see him again in about 6 months to repeat his CT scan. I told him that if he does have any concerning symptoms, should come back to office earlier He and his were comfortable with the plan as above. Coding Level of Care Code Est Pt Level 3 (06747) Diagnoses Retroperitoneal lymphadenopathy R59.0
--- OUTSIDE RECORDS SUMMARY | 2024-12-04 09:16 | XMS_ITS | Clinical Summary ---
Author Organization [facility] Address [address] [place] [address] Care Team Providers Care Wagon Winder Name Role Phone Unavailable Primary Care Provider [...]
== END 2024-12-04 09:10 | disposition home or self-care (01) ==
PROVIDERS: PCP Family Medicine; Visit Provider Surgery
DX: R59.0 Localized enlarged lymph nodes (principal)
CPT/HCPCS: 99213

== ENCOUNTER → 2024-12-04 08:38 | Outpatient (BNVA) | payer OTHER, SELFPAY | PROVIDERS: PCP Family Medicine; Visit Provider Surgery | DX: R59.0 Localized enlarged lymph nodes (principal) | CPT/HCPCS: 99212 ==

== ENCOUNTER 2025-03-28 10:07 | Outpatient (REF) | payer OTHER, SELFPAY ==
--- OUTSIDE RECORDS SUMMARY | 2025-03-28 10:43 | XMS_ITS | Clinical Summary ---
Author Organization [facility] ity Address [address] [place] [address] Care Team Providers Care Title Department Manager Name Role Phone Unavailable Primary Care Provider [...] - 2023-2 5 season) 2024 Influenza Vaccine (Season Ended) 2025 HIB Vaccines Aged Out No longer eligi [...] age to complete this topic Meningococcal B Vaccine Aged Out No l onger eligible based on patient's age to complete [...]
[2025-03-28 12:10] LABS: Prostate Specific Antigen 0.72 ng/mL (<0.05-4.0)
== END 2025-03-28 10:08 | disposition home or self-care (01) ==
LOC: HO.LAB 10:07
PROVIDERS: Nurse Practitioner Family; PCP Internal Medicine; Visit Provider Physician Assistant Medical
DX: R68.82 Decreased libido (principal)
CPT/HCPCS: 36415; 84153

== ENCOUNTER 2025-03-31 08:26 | Outpatient (AMB) | payer OTHER, SELFPAY ==
--- NOTE | 2025-03-31 08:28 | A.OFFVIS_ITS ---
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 He has a past medical history of hypercholesteremia and sleep apnea. He presents to the office today for follow-up of his erectile dysfunction. In discussion with the patient today he reports feeling improvement in his erections with daily dosing of tadalafil however he also feels symptoms of ED are related to other psychol ogical factors that can contribute to psychogenic erectile dysfunction.?He discusses having morning erections almost daily. 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 He denies any urinary issues. He denies urinary urgency, urinary frequency, incontinence, nocturia, hematuria, dysuria, foul smelling urine, changes to urinary stream, flank pain, fever, and or chills. He is happy with his current voiding parameters. Recent PSA results reviewed with the patient today as noted and trended below: PSA: 03/25 0.6, 03/26 0.7 Testosterone: 03/25 530 Free testosterone: 03/25 48.8 We discussed potential causes of ED as well as further treatment options and risks and benefits of these treatment options. He will continue with daily dosing of tadalafil. All questions were answered. He otherwise offers no other issues or concerns at this time. [facility] Medical History Elevated cholesterol Surgical History History of umbilical hernia repair (04/16/24) History of back surgery Family History Other Mental health disorder Social History Housing: Apartment Are you a primary direct care counselor to a significant other at home: No Do you presently have visiting nurse or other home services: No Patient Tobacco Use Status: Never used Tobacco e-Cigarette/Vaping Use: Never Used Second Hand Smoke Exposure: No Current occupational status: employed Current occupational exposures/hazards: No Cognitive needs: No Hearing needs: No Vision needs: No Review of Systems Const All systems reviewed & are unremarkable except as noted in HPI and below Physical Exam Const General: cooperative, healthy appearing, comfortable, no acute distress, well developed, alert and awake Orientation/consciousness: patient oriented x3 Resp Effort & Inspection: normal respiratory effort and able to speak in complete sentences Neuro General: patient oriented x3 Psych Appearance: grossly normal and well kempt Mental Status: mental status grossly normal Speech and movement: Clear speech present Affect: normal affect Attitude: cooperative Thought process: Normal thought process present Thought content: Normal thought content present Insight: Fair insight present (Psych) Judgement: Fair judgement present (Psych) Results AMB Urinalysis, Automated UA Leukoctes 0 Popeye/uL Last Edit by Pamela Duggan MA on 03/31/25 10:04 UA Nitrite Negative Last Edit by Pamela Duggan MA on 03/31/25 10:04 UA Urobilinogen 3.5 mg/dL Last Edit by Pamela Duggan MA on 03/31/25 10:04 UA Protein 0 mg/dL Last Edit by Pamela Duggan MA on 03/31/25 10:04 UA pH 5.5 Last Edit by Pamela Duggan MA on 03/31/25 10:04 UA Blood 0 Ludin/uL Last Edit by Pamela Duggan MA on 03/31/25 10:04 UA Specific [place]arat 1.020 Last Edit by Pamela Duggan MA on 03/31/25 10:04 UA Ketone Negative Last Edit by Pamela Duggan MA on 03/31/25 10:04 UA Bilirubin 0 mg/dL Last Edit by Pamela Duggan MA on 03/31/25 10:04 UA Glucose 0 mg/dL Last Edit by Pamela Duggan MA on 03/31/25 10:04 Results Reviewed Results Reviewed: Laboratory Last Values Urine pH (Auto) 5.5 03/31/25 09:34 Specific [place]arat (Auto) 1.020 03/31/25 09:34 Urine Protein (Auto) 0 mg/dL 03/31/25 09:34 Glucose (UA)(Auto) 0 mg/dL 03/31/25 09:34 Urine Ketones (Auto) Negative 03/31/25 09:34 Urine Blood (Auto) 0 Ludin/uL 03/31/25 09:34 Urine Nitrite (Auto) Negative 03/31/25 09:34 Urine Bilirubin (Auto) 0 mg/dL 03/31/25 09:34 Urine Urobilinogen (Auto) 3.5 mg/dL 03/31/25 09:34 Leukocyte Esterase (Auto) 0 Popeye/uL 03/31/25 09:34 Assessment & Plan Assessment & Plan (1) Decreased libido: Code(s): R68.82 - Decreased libido Category: Medical (2) Erectile dysfunction: Code(s): N52.9 - Male erectile dysfunction, unspecified Category: Medical (3) Screening for prostate cancer: Code(s): Z12.5 - Encounter for screening for malignant neoplasm of prostate Category: Medical (4) Renal cyst: Code(s): N28.1 - Cyst of kidney, acquired Category: Medical Plan In office urinalysis results reviewed with the patient today; as noted above. Recent PSA results reviewed with the patient today; as noted above. Will continue with surveillance monitoring of PSAs as well as renal cysts. He currently denies any bothersome urinary issues or concerns. He reports be happy with current voiding parameters. Will continue with daily dosing of tadalafil; refill provided. We discussed lifestyle modifications to assist with ED as well as overall health and well-being Will obtain renal ultrasound in 1 year. Will obtain PSA in 1 year. Follow-up in 1 year with imaging and labs; or sooner with any issues, concerns, and or questions. Orders: Orders Prostate Specific Antigen 1 Year Z12.5 - Encounter for screening for malignant neoplasm of prostate US renal BI 1 Year N28.1 - Cyst of kidney, acquired AMB Urinalysis Automated Today Z13.9 - Encounter for screening, unspecified Medications: Refilled tadalafil (Cialis) [facility] Group [facility] [address] [id number] 5 mg PO DAILY 90 days 90 tabs 3RF tadalafil (Cialis) [facility] [address] [id number] 5 mg PO DAILY 90 tabs 3RF 90 days Patient Instructions: The patient had an opportunity to ask questions regarding the treatment plan. All questions were answered. Physical exam, labs, and imaging were discussed and reviewed in detail. As well as risks, benefits, and discussion of treatment ryan jenna. No major barriers to understanding were identified. The patient expressed understanding and agreement with the above treatment plan. The patient was made aware they should contact our office by phone for worsening of their current condition, the appearance of new symptoms, or with any questions or concerns. Compliance is encouraged with any medications and follow up testing that is ordered. It is a privilege to be allowed the opportunity to participate in? your urological care.? Again, if you have any questions or concerns If you have any questions or concerns please do not hesitate to contact me. The office is [phone]. This note is constructed using voice recognition software. While every effort has been made to ensure accuracy head holder errors may have been included. Yours sincerely, YVONNE Robertson Coding Level of Care Code Est Pt Level 3 (89231) Complex EM visit Add On G2211 Diagnoses Decreased libido R68.82 Erectile dysfunction N52.9 Screening for prostate cancer Z12.5 Renal cyst N28.1
--- OUTSIDE RECORDS SUMMARY | 2025-03-31 08:34 | XMS_ITS | Clinical Summary ---
Author Organization [facility] ity Address [address] [place] [address] Care Team Providers Care Booth Operator Name Role Phone Unavailable Primary Care Provider [...]
== END 2025-03-31 09:01 | disposition home or self-care (01) ==
LOC: HO.HUSH 08:27
PROVIDERS: PCP Family Medicine; Visit Provider Nurse Practitioner Family
DX: R68.82 Decreased libido (principal); N52.9 Male erectile dysfunction, unspecified; Z12.5 Encounter for screening for malignant neoplasm of prostate; N28.1 Cyst of kidney, acquired; Z13.9 Encounter for screening, unspecified
CPT/HCPCS: 99213; G2211

== ENCOUNTER → 2025-03-31 08:26 | Outpatient (BNVA) | payer OTHER, SELFPAY | PROVIDERS: PCP Family Medicine; Visit Provider Nurse Practitioner Family | DX: R68.82 Decreased libido (principal); N52.9 Male erectile dysfunction, unspecified; N28.1 Cyst of kidney, acquired; Z12.5 Encounter for screening for malignant neoplasm of prostate | CPT/HCPCS: 81003; 99212 ==